=== PATIENT | female | born 1935 | race Caucasian/White ===

== ENCOUNTER 2022-09-01 11:47 | Emergency (ER) | payer MEDICARE, SELFPAY ==
[2022-09-01] VITALS (9 sets, daily range): BP systolic 117–147; BP diastolic 66–83; PULSE 70–102; RESP 18; TEMP 36.9; O2SAT 90–96; BMI 37.4; BMI 39.9
--- NOTE | 2022-09-01 12:31 | CT_ITS ---
FINAL REPORT TECHNIQUE: Axial images through the abdomen and pelvis were performed without contrast. This study was performed with techniques to keep radiation doses as low as reasonably achievable, (ALARA). Individualized dose reduction techniques using automated exposure control or adjustment of mA and/or kV according to the patient's size were employed. CLINICAL HISTORY: fall, ABD PAIN, CONSTIPATION, LARGE LACERATION ON BUTTOCK FROM FALLING ON A POTTY CHAIR PT UNABLE TO LAY ON BACK FOR SCAN, HAD TO LAY ON RIGHT SIDE FINDINGS: ABDOMEN: There is mild scarring in the lung bases. The heart size is normal. Limited images of the liver are unremarkable. The spleen is normal. No adrenal mass is identified. The aorta is normal in caliber. There is no significant free fluid or adenopathy. There is a lobular mass in the left flank subcutaneous tissues measuring up to 10.5 cm, likely represents a hematoma. There is some soft tissue air in this region. There is no nephrolithiasis. There is no hydronephrosis. Diffuse vascular calcification is identified. There are postoperative changes in the right hip which cause streak artifact. PELVIS: The appendix is not identified. The urinary bladder is unremarkable. There is no significant free fluid or adenopathy. IMPRESSION: Mass in the left flank subcutaneous tissues, likely represents a hematoma. Reviewed, Interpreted and Dictated by Oliverio Soriano III, MD Transcribed by Lyndsay Coe Authenticated and [facility]
[2022-09-01 12:39] LABS: Basophils # 0.1 K/mm3 (0-0.2); Basophils % 0.4 % (0.1-2.0); Eosinophils # 0.2 K/mm3 (0.0-0.4); Eosinophils % 1.2 % (0.1-12.0); Hematocrit 36.3 % (37.0-47.0); Hemoglobin 11.3 g/dL (12.2-16.2); Lymphocytes # 1.6 K/mm3 (0.7-4.5); Lymphocytes % 9.8 % (10-50); Mean Corpuscular Hemoglobin 29.4 pg (27.0-31.2); Mean Corpuscular Volume 94.9 fl (81-99); Monocytes # 0.8 K/mm3 (0.1-1.0); Monocytes % 5.1 % (1.7-9.3); Neutrophils # 13.7 K/mm3 (1.8-7.8); Neutrophils % 83.5 % (37.0-80.0); Platelet Count 282 K/mm3 (142-424); Red Blood Count 3.83 M/mm3 (4.20-5.40); Red Cell Distribution Width 15.9 % (11.5-17.5); White Blood Count 16.4 K/mm3 (4.8-10.8)
--- NOTE | 2022-09-01 12:40 | HMH.EDGENADL ---
Discharge Plan Disposition Patient Disposition: Home, Self-Care Condition: Good Prescriptions Prescriptions: No Action diltiazem HCl [Cardizem CD] 240 mg Capsule,Extended Release 24hr 240 mg PO DAILY citalopram [Celexa] 20 mg Tablet 20 mg PO DAILY hydrocodone-acetaminophen 7.5-325 mg Tablet 1 tab PO Q6H PRN (Reason: Anxiety) docusate sodium 100 mg Tablet 100 mg PO BID Eliquis 2.5 mg Tablet 2.5 mg PO BID furosemide [Lasix] 40 mg Tablet 40 mg PO DAILY trazodone 50 mg Tablet 50 mg PO HS potassium chloride 20 mEq Tablet,Er Particles/Crystals 20 meq PO DAILY olopatadine [Patanol] 0.1 % Drops 1 drp OPHTHALMIC (EYE) BID Rx Instructions: separate doses by at least 6-8 hours hydroxyzine HCl 10 mg Tablet 20 mg PO HS metoprolol tartrate 25 mg Tablet 25 mg PO BID omeprazole 20 mg Tablet,Delayed Release (Dr/Ec) 20 mg PO DAILY Referrals Follow up/Referrals: Oliver Castillo MD [Staff Physician] - See instructions Activity Restrictions/Add. Instructions Additional Instructions/Restrictions: Dressing changes twice daily. Remove the dressing gently cleanse the area and apply antibiotic ointment followed by a nonadhesive dressing. Clinical Impressions Clinical Impression: Laceration Instructions Patient Instructions: DI for Laceration Repair Discharge ED Provider: Todd Jorge General Adult HPI General Chief complaint: Wound/Laceration Stated complaint: Laceration to buttocks Time Seen by Provider: 09/01/22 12:27 History of Present Illness HPI narrative: Patient presents with a large laceration to the buttock after having reportedly fallen onto a potty chair. Symptoms are described as moderate she does complain of low back pain in association with today's incident. There is no exacerbating alleviating factors. H&P is limited due to the patient being a vague poor historian. Her son is at the bedside. Related Data Home Medications Medication Instructions Recorded Confirmed apixaban 2.5 mg tablet (Eliquis) 2.5 mg PO BID [place] 09/01/22 09/01/22 citalopram 20 mg tablet (Celexa) 20 mg PO DAILY [place] 09/01/22 09/01/22 diltiazem HCl 240 mg 240 mg PO DAILY [place] 09/01/22 09/01/22 capsule,extended release 24 hr (Cardizem CD) docusate sodium 100 mg tablet 100 mg PO BID UNKNOWN 09/01/22 09/01/22 furosemide 40 mg tablet (Lasix) 40 mg PO DAILY UNKNOWN 09/01/22 09/01/22 hydrocodone 7.5 mg-acetaminophen 1 tab PO Q6H PRN Anxiety 09/01/22 09/01/22 325 mg tablet hydroxyzine HCl 10 mg tablet 20 mg PO HS Anxiety 09/01/22 09/01/22 metoprolol tartrate 25 mg tablet 25 mg PO BID UNKNOWN 09/01/22 09/01/22 olopatadine 0.1 % eye drops 1 drp ophthalmic (eye) BID UNKNOWN 09/01/22 09/01/22 omeprazole 20 mg tablet,delayed 20 mg PO DAILY UNKNOWN 09/01/22 09/01/22 release potassium chloride 20 mEq 20 meq PO DAILY UNKNOWN 09/01/22 09/01/22 tablet,extended release(part/cryst) trazodone 50 mg tablet 50 mg PO HS UNKNOWN 09/01/22 09/01/22 Allergies Allergy/AdvReac Type Severity Reaction Status Date / Time cefprozil [From Cefzil] Allergy Verified 09/01/22 12:32 cephalexin [From Keflex] Allergy Verified 09/01/22 12:32 influenza virus vaccine ts Allergy Verified 09/01/22 12:32 [id number] (36 mos,up) [From Fluarix] Macrolide Antibiotics Allergy Verified 09/01/22 12:32 misoprostol [From Cytotec] Allergy Verified 09/01/22 12:32 naproxen [From Naprosyn] Allergy Verified 09/01/22 12:32 NSAIDS (Non-Steroidal Allergy Verified 09/01/22 12:32 Anti-Inflamma Penicillins Allergy Verified 09/01/22 12:32 pneumococcal vaccine Allergy Verified 09/01/22 12:32 red dye Allergy Verified 09/01/22 12:32 Sulfa (Sulfonamide Allergy Verified 09/01/22 12:32 Antibiotics) sulfamethoxazole Allergy Verified 09/01/22 12:32 [From Bactrim] sulindac [From Clinoril] Allergy Verified 09/01/22 12:32 tetracycline Allergy Verified
[2022-09-01 12:42] LABS: MANUAL DIFFERENTIAL MANUAL DIFFERENTIAL (MANUAL DIFF)
[2022-09-01 12:45] LABS: Alanine Aminotransferase 27 U/L (12-78); Albumin Level 3.3 g/dl (3.5-5.0); Alkaline Phosphatase 81 U/L (38-126); Anion Gap 10.3 mEq/L (5-15); Aspartate Amino Transferase 33 U/L (14-36); Bilirubin,Total 0.6 mg/dl (0.2-1.3); Blood Urea Nitrogen 32 mg/dl (7-17); Calcium 8.2 mg/dl (8.4-10.2); Carbon Dioxide 30 mmol/L (22.0-30.0); Chloride 103 mmol/L (98-107); Creatinine Clearance Estimated 43 mL/min (50-200); Estimated Glomerular Filt Rate 28 ml/min (>60); GFR (African American) 34 ML/MIN (>60); Globulin 3.4 g/dL (1.3-3.2); Glucose 172 mg/dl (74-100); Potassium 4.3 mmoL/L (3.5-5.1); Sodium 139 mmol/L (136-145); Total Protein,Serum 6.7 g/dl (6.3-8.2)
[2022-09-01 12:53] LABS: Eosinophils % 2 % (0-3); Lymphocytes % 7 % (10-50); Monocytes % 9 % (2-9); Neutrophils % 82 % (42-76); Total Cells Counted 100
[2022-09-01 12:54] LABS: Platelet Estimate Normal; RBC Morphology Normal
--- NOTE | 2022-09-01 13:13 | PC.NURSE ---
PT GONE TO CT
--- NOTE | 2022-09-01 14:03 | PC.NURSE ---
Spoke with family and explained we had multiple critical patients and that MD would be in with them shortly to update them on POC. Asked if they had any needs at this time. Advised they did not
--- NOTE | 2022-09-01 14:04 | PC.WOUNDNOTE ---
10 inches in length and approximately 4 inches width laceration to the l buttock
--- NOTE | 2022-09-01 14:05 | PC.NURSE ---
in speaking with family and updating them on POC. Calling rad to check on status of CT. Spoke with Estefany she advised the chart was locked and someone was reading it currently.
--- NOTE | 2022-09-01 14:11 | PC.NURSE ---
went in and spoke in detail with family and advised them the CT was being read right now, repositioned pt to the best position she could be in related to her wound, placed warm blanket under legs and floated her heels. Pt covered with warm blankets. No other needs at this time.
--- NOTE | 2022-09-01 14:45 | PC.NURSE ---
at bedside speaking with family. ALFONZO Duke calling Dr. Castillo at this time. Advised that he would call back.
--- NOTE | 2022-09-01 14:50 | PC.NURSE ---
DR IZQUIERDO SPEAKING WITH DR. SWAIN
--- NOTE | 2022-09-01 15:01 | PC.NURSE ---
October and I changed patients wet linens to dry linens and gave her warm blanket. Dr Hahn is room evaluating patient and talking to family members.
--- NOTE | 2022-09-01 15:30 | PC.NURSE ---
assisted MD with partial laceration closure. Pt tolerated will. Consent signed prior to procedure.
--- NOTE | 2022-09-01 15:37 | PC.NURSE ---
attempted to contact [facility] with no answer.
--- NOTE | 2022-09-01 15:54 | EXP.OP.NOTE ---
Date of procedure: 09/01/22 Pre-op Diagnosis:: Large complex left buttock laceration into the deep subcutaneous tissue (20 cm) Post-op Diagnosis:: Same Procedure performed:: Partial closure of large complex 20 cm left buttock laceration (bedside / Emergency Department) Surgeon:: Oliver Castillo MD Anesthesia: none Estimated blood loss (mL): 5 Clinical Note:: This is an 87-year-old female presenting to the Emergency Department with a large complex laceration of the left buttock into the deep subcutaneous tissue status post fall onto bedside commode. Operative findings:: No ongoing blood loss evident 20 cm laceration with slightly oblique angulation along the left buttock. Extension into the deep subcutaneous tissue but no definitive injury to the underlying fascial margin/musculature. Operative note:: After informed consent was obtained the patient was maintained in a right lateral decubitus position in the emergency department. The wound margin was prepped with Betadine. 2-0 nylon was utilized in a mattress fashion to partially close the wound (5 areas left for packing). The intervening 5 areas were packed with dry gauze and clean dressings were then applied. Condition: stable Disposition: no change Complications:: No immediate
--- NOTE | 2022-09-01 16:00 | PC.NURSE ---
after closer of laceration, area cleaned and bandage placed to cover. PT tolerated well, family at bs
[2022-09-01 16:41] LABS: Coronavirus 19, PCR Not Detected (NotDetected); Influenza A, PCR Not Detected (NotDetected); Influenza B, PCR Not Detected (NotDetected)
--- NOTE | 2022-09-01 16:45 | PC.NURSE ---
Report called to Gabe at [facility]. Explained in detail about pt dressing changes that are to be done bid starting tomorrow morning, pt has 5 areas of packing due to partial laceration closure, each packing, the first four on top to bottom has 1-4x4 guaze with the last packed with half of kerlex dressing. LAceration was cleaned and bandage placed on area.
--- NOTE | 2022-09-01 17:28 | HMH.EDGENADL ---
Discharge Plan Disposition Patient Disposition: Home, Self-Care Condition: Good Prescriptions Prescriptions: New levofloxacin 500 mg tablet See Rx Instructions .ROUTE .COMPLEX 5 Days Qty: 5 0RF Rx Instructions: 500 mg orally q 48 hours No Action diltiazem HCl [Cardizem CD] 240 mg Capsule,Extended Release 24hr 240 mg PO DAILY citalopram [Celexa] 20 mg Tablet 20 mg PO DAILY hydrocodone-acetaminophen 7.5-325 mg Tablet 1 tab PO Q6H PRN (Reason: Anxiety) docusate sodium 100 mg Tablet 100 mg PO BID Eliquis 2.5 mg Tablet 2.5 mg PO BID furosemide [Lasix] 40 mg Tablet 40 mg PO DAILY trazodone 50 mg Tablet 50 mg PO HS potassium chloride 20 mEq Tablet,Er Particles/Crystals 20 meq PO DAILY olopatadine [Patanol] 0.1 % Drops 1 drp OPHTHALMIC (EYE) BID Rx Instructions: separate doses by at least 6-8 hours hydroxyzine HCl 10 mg Tablet 20 mg PO HS metoprolol tartrate 25 mg Tablet 25 mg PO BID omeprazole 20 mg Tablet,Delayed Release (Dr/Ec) 20 mg PO DAILY Referrals Follow up/Referrals: Oliver Castillo MD [Staff Physician] - See instructions Activity Restrictions/Add. Instructions Additional Instructions/Restrictions: Dressing changes twice daily. Remove the dressing gently cleanse the area and apply antibiotic ointment followed by a nonadhesive dressing. Clinical Impressions Clinical Impression: Laceration Instructions Patient Instructions: DI for Laceration Repair Discharge ED Provider: Todd Jorge Adult [facility] General Chief complaint: Wound/Laceration Stated complaint: Laceration to buttocks Time Seen by Provider: 09/01/22 12:27 Mode of Arrival: EMS Limitations: No Limitations Description of Symptoms (Recalled from ER Triage Doc. by RN): c/o left buttock laceration after falling on her potty chair. Related Data Home Medications Medication Instructions Recorded Confirmed apixaban 2.5 mg tablet (Eliquis) 2.5 mg PO BID [place] 09/01/22 09/01/22 citalopram 20 mg tablet (Celexa) 20 mg PO DAILY [place] 09/01/22 09/01/22 diltiazem HCl 240 mg 240 mg PO DAILY [place] 09/01/22 09/01/22 capsule,extended release 24 hr (Cardizem CD) docusate sodium 100 mg tablet 100 mg PO BID UNKNOWN 09/01/22 09/01/22 furosemide 40 mg tablet (Lasix) 40 mg PO DAILY UNKNOWN 09/01/22 09/01/22 hydrocodone 7.5 mg-acetaminophen 1 tab PO Q6H PRN Anxiety 09/01/22 09/01/22 325 mg tablet hydroxyzine HCl 10 mg tablet 20 mg PO HS Anxiety 09/01/22 09/01/22 metoprolol tartrate 25 mg tablet 25 mg PO BID UNKNOWN 09/01/22 09/01/22 olopatadine 0.1 % eye drops 1 drp ophthalmic (eye) BID UNKNOWN 09/01/22 09/01/22 omeprazole 20 mg tablet,delayed 20 mg PO DAILY UNKNOWN 09/01/22 09/01/22 release potassium chloride 20 mEq 20 meq PO DAILY UNKNOWN 09/01/22 09/01/22 tablet,extended release(part/cryst) trazodone 50 mg tablet 50 mg PO HS UNKNOWN 09/01/22 09/01/22 Previous Rx's Medication Instructions Recorded levofloxacin 500 mg tablet See Rx Instructions .Route 09/01/22 .COMPLEX 5 days #5 tabs Allergies Allergy/AdvReac Type Severity Reaction Status Date / Time cefprozil [From Cefzil] Allergy Verified 09/01/22 12:32 cephalexin [From Keflex] Allergy Verified 09/01/22 12:32 influenza virus vaccine ts Allergy Verified 09/01/22 12:32 [id number] (36 mos,up) [From Fluarix] Macrolide Antibiotics Allergy Verified 09/01/22 12:32 misoprostol [From Cytotec] Allergy Verified 09/01/22 12:32 naproxen [From Naprosyn] Allergy Verified 09/01/22 12:32 NSAIDS (Non-Steroidal Allergy Verified 09/01/22 12:32 Anti-Inflamma Penicillins Allergy Verified 09/01/22 12:32 pneumococcal vaccine Allergy Verified 09/01/22 12:32 red dye Allergy Verified 09/01/22 12:32 Sulfa (Sulfonamide Allergy Verified 09/01/22 12:32 Antibiotics) sulfamethoxazole Allergy Verified 09/01/22 12:32 [From Bactrim] sulindac [From Clinoril] All
== END 2022-09-01 17:58 | disposition home or self-care (01) ==
PROVIDERS: Emergency Provider Emergency Medicine
DX: S31.821A Laceration without foreign body of left buttock, initial encounter (principal); W18.11XA Fall from or off toilet without subsequent striking against object, initial encounter; Y92.121 Bathroom in nursing home as the place of occurrence of the external cause; Z23 Encounter for immunization; Z20.822 Contact with and (suspected) exposure to COVID-19
CPT/HCPCS: 12035; 74176; 80053; 85007; 85025; 90471; 90715; 99285; C9803; J1956; U0003; U0005

== ENCOUNTER 2022-09-03 12:40 | Inpatient (IN) | payer OTHER, MEDICARE, MEDICAID, SELFPAY ==
[2022-09-03] VITALS (19 sets, daily range): BP systolic 98–142; BP diastolic 53–97; PULSE 97–140; RESP 14–22; TEMP 36.6–37.3; O2SAT 93–99; BMI 30.7; BMI 36.9
--- NOTE | 2022-09-03 12:52 | PC.NURSE ---
Dr. Lantigua at assessing patients wound
--- NOTE | 2022-09-03 13:03 | PC.NURSE ---
WENDY FULTON speaking with Dr. Lantigua at this time
--- NOTE | 2022-09-03 13:08 | HMH.EDGENADL ---
Discharge Plan Disposition Patient Disposition: Admitted As Inpatient Chief Complaint: Wound/Laceration Prescriptions Prescriptions: No Action diltiazem HCl [Cardizem CD] 240 mg Capsule,Extended Release 24hr 240 mg PO DAILY citalopram [Celexa] 20 mg Tablet 20 mg PO DAILY hydrocodone-acetaminophen 7.5-325 mg Tablet 1 tab PO Q6H PRN (Reason: Anxiety) docusate sodium 100 mg Tablet 100 mg PO BID Eliquis 2.5 mg Tablet 2.5 mg PO BID furosemide [Lasix] 40 mg Tablet 40 mg PO DAILY trazodone 50 mg Tablet 50 mg PO HS potassium chloride 20 mEq Tablet,Er Particles/Crystals 20 meq PO DAILY olopatadine [Patanol] 0.1 % Drops 1 drp OPHTHALMIC (EYE) BID Rx Instructions: separate doses by at least 6-8 hours hydroxyzine HCl 10 mg Tablet 20 mg PO HS metoprolol tartrate 25 mg Tablet 25 mg PO BID omeprazole 20 mg Tablet,Delayed Release (Dr/Ec) 20 mg PO DAILY levofloxacin 500 mg tablet See Rx Instructions .ROUTE .COMPLEX 5 Days Qty: 5 0RF Rx Instructions: 500 mg orally q 48 hours Referrals Follow up/Referrals: Weston Hamm [Primary Care Provider] - See instructions Clinical Impressions Clinical Impression: Laceration, Laceration of buttock with complication Instructions Patient Instructions: DI for Laceration Repair Discharge ED Provider: Jacky Quarles General Adult HPI General Chief complaint: Wound/Laceration Stated complaint: Wound Recheck Time Seen by Provider: 09/03/22 13:09 Mode of Arrival: EMS Source of Information: EMS Limitations: Unable to assess Description of Symptoms (Recalled from ER Triage Doc. by RN): 87 F presents via EMS from [facility] for a wound recheck. 2 days ago she sustained a fall from a bedside commode causing a large laceration to her left buttock. This was sutured and bandaged prior to going back to senior living. The senior living called stating the wound was bleeding more and draining. Patient is mostly oriented. She is a DNR/Hospice patient. History of Present Illness HPI narrative: Patient is a 87-year-old female presenting from senior living for wound recheck. She sustained a laceration several days ago that was repaired at the bedside. Went back to the senior living however there has been increasing drainage and bleeding coming from this wound. Dr. Suad Hein called me prior to this patient's arrival and said the surgeon would likely want to take the patient to the operating room. He stated that she was offered an operation last time she was in the ED and patient is family denied. However they would like more aggressive approach at this point. There are no further complaints from the patient or family at this point. Related Data Home Medications Medication Instructions Recorded Confirmed apixaban 2.5 mg tablet (Eliquis) 2.5 mg PO BID [place] 09/01/22 09/01/22 citalopram 20 mg tablet (Celexa) 20 mg PO DAILY [place] 09/01/22 09/01/22 diltiazem HCl 240 mg 240 mg PO DAILY [place] 09/01/22 09/01/22 capsule,extended release 24 hr (Cardizem CD) docusate sodium 100 mg tablet 100 mg PO BID UNKNOWN 09/01/22 09/01/22 furosemide 40 mg tablet (Lasix) 40 mg PO DAILY UNKNOWN 09/01/22 09/01/22 hydrocodone 7.5 mg-acetaminophen 1 tab PO Q6H PRN Anxiety 09/01/22 09/01/22 325 mg tablet hydroxyzine HCl 10 mg tablet 20 mg PO HS Anxiety 09/01/22 09/01/22 metoprolol tartrate 25 mg tablet 25 mg PO BID UNKNOWN 09/01/22 09/01/22 olopatadine 0.1 % eye drops 1 drp ophthalmic (eye) BID UNKNOWN 09/01/22 09/01/22 omeprazole 20 mg tablet,delayed 20 mg PO DAILY UNKNOWN 09/01/22 09/01/22 release potassium chloride 20 mEq 20 meq PO DAILY UNKNOWN 09/01/22 09/01/22 tablet,extended release(part/cryst) trazodone 50 mg tablet 50 mg PO HS UNKNOWN 09/01/22 09/01/22 Previous Rx's Medication Instructions Recorded levofloxacin 500 mg tablet See Rx Instructions .Route 09/01/22 .COMPLEX 5 days #5 tabs Al
--- NOTE | 2022-09-03 13:21 | PC.NURSE ---
Patient taken to OR for wound clean out and wound vac placement
--- NOTE | 2022-09-03 13:26 | EXP.SURG.CON ---
History of Present Illness *Admission Date: 09/03/22 *Reason for visit:: Wound *History of present illness: Patient is an 87-year-old female who is a hospice detention patient who had presented to the emergency department 2 days ago on 09/01/2022 after she had sustained a very large complex laceration to the left buttock with laceration measuring 20 cm in length. The area was partially closed by Dr. Castillo in the emergency department at that time leaving several areas open for packing for dressing changes due to the high likelihood of potential infection. Subsequently there has been problems with wound care with significant amount of drainage and concerns for infection and she therefore was sent back to the emergency department. Surgical consultation was obtained. Of note, when she was initially evaluated in the emergency department on 09/01/[address] scan performed which revealed mass in the left flank subcutaneous tissues likely represents a hematoma. [facility] Disclaimer: The information contained in this section may have been updated after the patient was seen, as this information can be updated by other users. Social History (Updated 09/01/22 @ 17:19 by Todd Jorge MD) Smoking Status: Never smoker alcohol intake: never current occupational status: unemployed Travel in the last 8 weeks: None Meds Home Medications and Allergies Home Medications Medication Instructions Recorded Confirmed Type apixaban 2.5 mg tablet (Eliquis) 2.5 mg PO BID [place] 09/01/22 09/01/22 History citalopram 20 mg tablet (Celexa) 20 mg PO DAILY [place] 09/01/22 09/01/22 History diltiazem HCl 240 mg 240 mg PO DAILY [place] 09/01/22 09/01/22 History capsule,extended release 24 hr (Cardizem CD) docusate sodium 100 mg tablet 100 mg PO BID UNKNOWN 09/01/22 09/01/22 History furosemide 40 mg tablet (Lasix) 40 mg PO DAILY UNKNOWN 09/01/22 09/01/22 History hydrocodone 7.5 mg-acetaminophen 1 tab PO Q6H PRN Anxiety 09/01/22 09/01/22 History 325 mg tablet hydroxyzine HCl 10 mg tablet 20 mg PO HS Anxiety 09/01/22 09/01/22 History levofloxacin 500 mg tablet See Rx Instructions .Route 09/01/22 Rx .COMPLEX 5 days #5 tabs metoprolol tartrate 25 mg tablet 25 mg PO BID UNKNOWN 09/01/22 09/01/22 History olopatadine 0.1 % eye drops 1 drp ophthalmic (eye) BID UNKNOWN 09/01/22 09/01/22 History omeprazole 20 mg tablet,delayed 20 mg PO DAILY UNKNOWN 09/01/22 09/01/22 History release potassium chloride 20 mEq 20 meq PO DAILY UNKNOWN 09/01/22 09/01/22 History tablet,extended release(part/cryst) trazodone 50 mg tablet 50 mg PO HS UNKNOWN 09/01/22 09/01/22 History New Prescriptions to Start Prescriptions: Allergies Allergy/AdvReac Type Severity Reaction Status Date / Time cefprozil [From Cefzil] Allergy Verified 09/03/22 13:34 cephalexin [From Keflex] Allergy Verified 09/03/22 13:34 influenza virus vaccine ts Allergy Verified 09/03/22 13:34 [id number] (36 mos,up) [From Fluarix] Macrolide Antibiotics Allergy Verified 09/03/22 13:34 misoprostol [From Cytotec] Allergy Verified 09/03/22 13:34 naproxen [From Naprosyn] Allergy Verified 09/03/22 13:34 NSAIDS (Non-Steroidal Allergy Verified 09/03/22 13:34 Anti-Inflamma Penicillins Allergy Verified 09/03/22 13:34 pneumococcal vaccine Allergy Verified 09/03/22 13:34 red dye Allergy Verified 09/03/22 13:34 Sulfa (Sulfonamide Allergy Verified 09/03/22 13:34 Antibiotics) sulfamethoxazole Allergy Verified 09/03/22 13:34 [From Bactrim] sulindac [From Clinoril] Allergy Verified 09/03/22 13:34 tetracycline Allergy Verified 09/03/22 13:34 trimethoprim [From Bactrim] Allergy Verified 09/03/22 13:34 erythromycin base AdvReac Verified 09/03/22 13:34 Exam (Inpt) Vital signs and Labs for Last 24 Hours: Temp Pulse Resp BP Pulse Ox 98.6 F 97 H 19 98/67 L 99 09/03/22 13:22 09/03/22 13:22 09/03/22 13:22 09/03/22 13:22 09/03/22 1
--- NOTE | 2022-09-03 14:22 | EXP.ANES.CKL ---
[facility] Disclaimer: The information contained in this section may have been updated after the patient was seen, as this information can be updated by other users. Social History (Updated 09/01/22 @ 17:19 by Todd Jorge MD) Smoking Status: Never smoker alcohol intake: never substance use type: denies use current occupational status: unemployed Travel in the last 8 weeks: None [facility] Anesthesia Checklist Patient Identification Patient Identification: Arm Band and Family Structural Data Admitted From: Long-term Nursing Facility Planned Operative Procedure/s: Left Buttock wound debridment Consent for Planned Operative Procedure(s) Verified: Yes Verified Documents: Surgical Consent NPO Status Verified Time NPO: 00:00 Airway Assessment C-Spine Mobility Assessed: Yes TMJ Mobility Assessed: No Neurological Assessment Level of Consciousness: Follows Commands Anesthesia Plan Anesthesia Risk discussed: No ASA Class: III Anesthesia Type: MAC
--- NOTE | 2022-09-03 15:08 | P.OP_ITS ---
Date of procedure: 09/03/22 Pre-op Diagnosis:: Complex left buttock/pelvic wound Post-op Diagnosis:: Same Procedure performed:: Wound washout with placement of negative pressure wound therapy dressing Surgeon:: Oliverio Lantigua MD MATERIAL CONTROL ASSOCIATE:: Iraj Strickland Anesthesia: MAC Estimated blood loss (mL): 20 Clinical Note:: Patient is an 87-year-old female who is a hospice fdc patient who had presented to the emergency department 2 days ago on 09/01/2022 after she had sustained a very large complex laceration to the left buttock with laceration measuring estimated 20 cm in length.? The area was partially closed by Dr. Castillo in the emergency department at that time leaving several areas open for packing for dressing changes due to the high likelihood of potential infection.? Subsequently there has been problems with wound care with significant amount of drainage and concerns for infection and she therefore was sent back to the emergency department.? Surgical consultation was obtained.? Of note, when she was initially evaluated in the emergency department on 09/01/2022 she did have a CT scan performed which revealed mass in the left flank subcutaneous tissues likely represents a hematoma. Due to the difficulty in managing the wound with current wound care regimen and due to the possibility of some tissue necrosis plan was for aggressive wound washout in the operating room under anesthesia and likely possible negative pressure wound therapy dressing application under anesthesia.? Plan will be for admission to hospitalist service for wound care, antibiotics. Operative findings:: She had a rather large complex wound which measured 28 cm in length along the left gluteal area with 8 cm in width and 2 cm in depth superiorly with 3 cm undermining circumferentially. However, it was quite deep at the lower buttock in the perirectal location with 13 cm of deep tunneling down to the gluteal muscles and some pelvic musculature. No evidence of any deep tissue necrosis. There was some bruising and skin necrosis superficially which was not debrided at this time. Operative note:: Patient was taken the operating room. She was positioned in lateral position. The area was prepped and draped in the standard surgical fashion. Previously placed sutures were removed. Wound was probed and inspected. There was some minor tissue necrosis towards the upper aspect and lower aspect of the wound. It was difficult to determine and the lower aspect how much of this was ecchymosis versus necrosis. No evidence of any deep tissue necrosis. Wound was probed and there was significant tunneling into the gluteal and pelvic tissues measuring up to about 13 cm into the deep tissues in the lower aspect of the wound. Wound was thoroughly irrigated with the Interpulse pulsatile saline irrigation device with 7 L of saline. There appeared to be adequate hemostasis. Wound measurements were obtained. Negative pressure wound therapy foam was fashioned to the appropriate size and shape to pack the wound. Occlusive VAC dressing was then applied and suction was attached. Patient tolerated the procedure well with no immediate complications. Condition: stable Disposition: PACU Complications:: None immediately apparent
--- NOTE | 2022-09-03 15:49 | PC.NURSE ---
arrived to floor by bed from surgery at 15:47
--- NOTE | 2022-09-03 16:15 | PC.NURSE ---
1536-detailed report called to José Antonio,RN 1538-pt transported to 2nd floor room 208 via hospital bed w/alpesh rails up, pt left in care of ALFONZO Mendez with bed locked in lowest position, additional bedside report given, vss, pt stable
--- NOTE | 2022-09-03 16:38 | EXP.HP ---
History of Present Illness *Admission Date: 09/03/22 *Reason for visit:: Laceration *History of present illness: Ms. Abdalla is an 87-year-old female with history of rheumatoid arthritis, bilateral foot deformities, class II obesity, and dementia who presented from [facility] due to laceration. She was previously a hospice patient but discharged earlier today at the family's request so she could come to the hospital to have large left gluteal laceration addressed. She originally presented to the ER 2 days ago on 09/01/2022 after she had sustained a very large complex laceration to the left buttock with laceration measuring 20 cm in length. Wound sustained when she fell against her potty chair. The area was partially closed by Dr. Castillo in the emergency department at that time leaving several areas open for packing for dressing changes due to the high likelihood of potential infection. Due to the complexity of the wound and difficulty with wound care and a significant mount of drainage along with concern for infection, family requested patient be sent back to the hospital for further management and surgical intervention. On arrival to the ER, surgery consulted, plan to take patient to the OR to surgically close wound and place wound VAC. Medicine consulted for admission. Patient evaluated after arriving to the floor post surgery. Family in the room with her includes a son, daughter, [id number], grandson. They provided history of patient. It appears she has been on hospice for several years due to her rheumatoid arthritis, progressive debility, and dementia. No formal diagnosis of dementia previously however she does not take care of her ADLs daily, has declined over the past year, does not recall if she is spoken to people hours later. [facility] Disclaimer: The information contained in this section may have been updated after the patient was seen, as this information can be updated by other users. Medical History (Updated 09/03/22 @ 18:38 by Cesar Hein MD) Atrial fibrillation Congestive heart failure Deep vein thrombosis (DVT) Hypertension Rheumatoid arthritis Family History No significant family history Social History Smoking Status: Never smoker alcohol intake: never substance use type: denies use current occupational status: unemployed Travel in the last 8 weeks: None Review of Systems Review of Systems Review of systems (narrative): 14 point review of systems performed, pertinent positives and negatives as per [facility] Meds Home Medications and Allergies Home Medications Medication Instructions Recorded Confirmed Type apixaban 2.5 mg tablet (Eliquis) 2.5 mg PO BID [place] 09/01/22 09/03/22 History citalopram 20 mg tablet (Celexa) 20 mg PO DAILY [place] 09/01/22 09/03/22 History diltiazem HCl 240 mg 240 mg PO DAILY [place] 09/01/22 09/03/22 History capsule,extended release 24 hr (Cardizem CD) docusate sodium 100 mg tablet 100 mg PO BID UNKNOWN 09/01/22 09/03/22 History furosemide 40 mg tablet (Lasix) 40 mg PO DAILY UNKNOWN 09/01/22 09/03/22 History hydrocodone 7.5 mg-acetaminophen 1 tab PO Q6H PRN Anxiety 09/01/22 09/03/22 History 325 mg tablet hydroxyzine HCl 10 mg tablet 20 mg PO HS Anxiety 09/01/22 09/03/22 History metoprolol tartrate 25 mg tablet 25 mg PO BID UNKNOWN 09/01/22 09/03/22 History olopatadine 0.1 % eye drops 1 drp ophthalmic (eye) BID UNKNOWN 09/01/22 09/03/22 History omeprazole 20 mg tablet,delayed 20 mg PO DAILY UNKNOWN 09/01/22 09/03/22 History release potassium chloride 20 mEq 20 meq PO DAILY UNKNOWN 09/01/22 09/03/22 History tablet,extended release(part/cryst) trazodone 50 mg tablet 50 mg PO HS Insomnia 09/01/22 09/03/22 History New Prescriptions to Start Prescriptions: Allergies Allergy/AdvReac Type Severity Reaction Status Date / Time cefproz
--- NOTE | 2022-09-03 16:48 | ECG_ITS ---
APPROVED REPORT Exam: Resting ECG HR:120 bpm ECG Measurements Heart Rate 120 AXES QRSd 87 QRS 46 QT 316 T 247 QTc 388 Conclusion ATRIAL FIBRILLATION WITH RAPID VENTRICULAR RESPONSE LOW QRS VOLTAGE [QRS DEFLECTION < 0.5/1.0 mV IN LIMB/CHEST LEADS] MODERATE ST DEPRESSION [0.05+ mV ST DEPRESSION] ABNORMAL QRS-T ANGLE [QRS-T AXIS DIFFERENCE > 60] ABNORMAL ECG UNCONFIRMED REPORT Electronically signed by : Franklyn Andersen MD 09/04/2022 20:44:12
--- NOTE | 2022-09-03 17:44 | XR_ITS ---
PROCEDURE INFORMATION: Exam: XR Chest Exam date and time: 09/03/2022 6:35 PM Age: 87 years old Clinical indication: Shortness of breath; Additional info: SOA TECHNIQUE: Imaging protocol: Radiologic exam of the chest. Views: 1 view. COMPARISON: CT ABDOMEN PELVIS WO CON 09/01/2022 1:30 PM FINDINGS: Lungs: There is mild bilateral lower lobe atelectasis. Lungs are otherwise clear. Pleural spaces: Unremarkable. No pleural effusion. No pneumothorax. Heart/Mediastinum: Cardiac silhouette is top-normal in size for technique. Bones/joints: Old, healed left proximal humerus fracture noted. Mild degenerative changes of the spine and shoulders are present. IMPRESSION: Borderline cardiomegaly with mild bilateral lower lobe atelectasis and chronic osseous changes.
[2022-09-03 18:42] LABS: Chloride 101 mmol/L (98-107); Potassium 4.6 mmoL/L (3.5-5.1); Sodium 136 mmol/L (136-145)
[2022-09-03 18:45] LABS: Alanine Aminotransferase 27 U/L (12-78); Albumin Level 2.9 g/dl (3.5-5.0); Albumin/Globulin Ratio 0.9 (1.1-1.8); Alkaline Phosphatase 112 U/L (38-126); Anion Gap 9.6 mEq/L (5-15); Aspartate Amino Transferase 48 U/L (14-36); Basophils # 0.1 K/mm3 (0-0.2); Basophils % 0.3 % (0.1-2.0); Bilirubin,Total 0.4 mg/dl (0.2-1.3); Blood Urea Nitrogen 41 mg/dl (7-17); Carbon Dioxide 30 mmol/L (22.0-30.0); Creatinine Clearance Estimated 33 mL/min (50-200); Eosinophils # 0.1 K/mm3 (0.0-0.4); Eosinophils % 0.6 % (0.1-12.0); Estimated Glomerular Filt Rate 24 ml/min (>60); GFR (African American) 29 ML/MIN (>60); Globulin 3.4 g/dL (1.3-3.2); Hematocrit 28.7 % (37.0-47.0); Hemoglobin 8.8 g/dL (12.2-16.2); Lymphocytes # 1.3 K/mm3 (0.7-4.5); Lymphocytes % 9.1 % (10-50); Mean Corpuscular HGB Conc 30.8 g/dL (31.8-35.4); Mean Corpuscular Hemoglobin 29.5 pg (27.0-31.2); Mean Corpuscular Volume 95.7 fl (81-99); Monocytes % 7.3 % (1.7-9.3); Neutrophils # 11.4 K/mm3 (1.8-7.8); Neutrophils % 82.7 % (37.0-80.0); Platelet Count 265 K/mm3 (142-424); Red Cell Distribution Width 16.2 % (11.5-17.5); Total Protein,Serum 6.3 g/dl (6.3-8.2); White Blood Count 13.8 K/mm3 (4.8-10.8)
[2022-09-03 18:46] LABS: Calcium 7.5 mg/dl (8.4-10.2); Glucose 183 mg/dl (74-100)
[2022-09-04] VITALS (20 sets, daily range): BP systolic 89–133; BP diastolic 46–92; PULSE 67–150; RESP 15–22; TEMP 36.5–37.8; O2SAT 90–100; BMI 39.4; BMI 37.5
--- NOTE | 2022-09-04 04:28 | PC.NURSE ---
Pt. with c/o pain in left buttock and the left side of her head. Pain meds given and no other changes noted.
--- NOTE | 2022-09-04 05:42 | ECG_ITS ---
APPROVED REPORT Exam: Resting ECG HR:122 bpm ECG Measurements Heart Rate 122 AXES QRSd 86 QRS 40 QT 324 T 258 QTc 397 Conclusion ATRIAL FIBRILLATION WITH RAPID VENTRICULAR RESPONSE LOW QRS VOLTAGE [QRS DEFLECTION < 0.5/1.0 mV IN LIMB/CHEST LEADS] MODERATE ST DEPRESSION [0.05+ mV ST DEPRESSION] ABNORMAL QRS-T ANGLE [QRS-T AXIS DIFFERENCE > 60] ABNORMAL ECG UNCONFIRMED REPORT Electronically signed by : Franklyn Andersen MD 09/04/2022 20:43:41
--- NOTE | 2022-09-04 05:48 | PC.NURSE ---
Brigid called about pt's HR in the 130's to 140's. EKG ordered.
--- NOTE | 2022-09-04 06:03 | PC.NURSE ---
Received report from Rosi Cornelius to assume pt care at this time.
--- NOTE | 2022-09-04 06:25 | PC.NURSE ---
CARDIZEM GTT STARTED AT 5 MG PER HOUR, HR 142 A FIB WITH RVR
--- NOTE | 2022-09-04 06:25 | PC.NURSE ---
CARDIZEM INCREASED TO 10 MG PER HOUR. HR 130, b/P 125/65
[2022-09-04 08:05] LABS: Chloride 106 mmol/L (98-107); Sodium 136 mmol/L (136-145)
[2022-09-04 08:06] LABS: Potassium 5.4 mmoL/L (3.5-5.1)
[2022-09-04 08:08] LABS: Alanine Aminotransferase 22 U/L (12-78); Albumin Level 2.2 g/dl (3.5-5.0); Albumin/Globulin Ratio 0.8 (1.1-1.8); Alkaline Phosphatase 38 U/L (38-126); Anion Gap 7.4 mEq/L (5-15); Aspartate Amino Transferase 64 U/L (14-36); Bilirubin,Total 0.4 mg/dl (0.2-1.3); Blood Urea Nitrogen 41 mg/dl (7-17); Carbon Dioxide 28 mmol/L (22.0-30.0); Creatinine Clearance Estimated 47 mL/min (50-200); Estimated Glomerular Filt Rate 33 ml/min (>60); GFR (African American) 40 ML/MIN (>60); Globulin 2.6 g/dL (1.3-3.2); Glucose 107 mg/dl (74-100); Total Protein,Serum 4.8 g/dl (6.3-8.2)
[2022-09-04 08:09] LABS: Magnesium 2.1 mg/dl (1.6-2.3)
[2022-09-04 08:54] LABS: Basophils # 0.6 K/mm3 (0-0.2); Basophils % 4.4 % (0.1-2.0); Eosinophils # 0.2 K/mm3 (0.0-0.4); Eosinophils % 1.3 % (0.1-12.0); Hematocrit 42.3 % (37.0-47.0); Lymphocytes # 1.5 K/mm3 (0.7-4.5); Lymphocytes % 11.5 % (10-50); Mean Corpuscular Hemoglobin 28.7 pg (27.0-31.2); Mean Corpuscular Volume 92.8 fl (81-99); Mean Platelet Volume 8.8 fl (7.4-10.4); Monocytes # 1.7 K/mm3 (0.1-1.0); Monocytes % 13.4 % (1.7-9.3); Neutrophils # 9.4 K/mm3 (1.8-7.8); Neutrophils % 73.8 % (37.0-80.0); Platelet Count 98 K/mm3 (142-424); Red Blood Count 4.56 M/mm3 (4.20-5.40); White Blood Count 12.7 K/mm3 (4.8-10.8)
[2022-09-04 09:08] LABS: Hemoglobin 13.1 g/dL (12.2-16.2)
--- NOTE | 2022-09-04 10:14 | EXP.PHA.CONS ---
Pharmacy Consult Date: 09/04/22 Time: 10:15 Referring provider: DR FUNES Reason for Consult:: VANCOMYCIN DOSING CONSULT Allergies Allergy/AdvReac Type Severity Reaction Status Date / Time cefprozil [From Cefzil] Allergy Verified 09/03/22 13:34 cephalexin [From Keflex] Allergy Verified 09/03/22 13:34 influenza virus vaccine ts Allergy Verified 09/03/22 13:34 [id number] (36 mos,up) [From Fluarix] Macrolide Antibiotics Allergy Verified 09/03/22 13:34 misoprostol [From Cytotec] Allergy Verified 09/03/22 13:34 naproxen [From Naprosyn] Allergy Verified 09/03/22 13:34 NSAIDS (Non-Steroidal Allergy Verified 09/03/22 13:34 Anti-Inflamma Penicillins Allergy Verified 09/03/22 13:34 pneumococcal vaccine Allergy Verified 09/03/22 13:34 red dye Allergy Verified 09/03/22 13:34 Sulfa (Sulfonamide Allergy Verified 09/03/22 13:34 Antibiotics) sulfamethoxazole Allergy Verified 09/03/22 13:34 [From Bactrim] sulindac [From Clinoril] Allergy Verified 09/03/22 13:34 tetracycline Allergy Verified 09/03/22 13:34 trimethoprim [From Bactrim] Allergy Verified 09/03/22 13:34 erythromycin base AdvReac Verified 09/03/22 13:34 Home Medications Medication Instructions Recorded Confirmed Type apixaban 2.5 mg tablet (Eliquis) 2.5 mg PO BID [place] 09/01/22 09/03/22 History citalopram 20 mg tablet (Celexa) 20 mg PO DAILY [place] 09/01/22 09/03/22 History diltiazem HCl 240 mg 240 mg PO DAILY [place] 09/01/22 09/03/22 History capsule,extended release 24 hr (Cardizem CD) docusate sodium 100 mg tablet 100 mg PO BID UNKNOWN 09/01/22 09/03/22 History furosemide 40 mg tablet (Lasix) 40 mg PO DAILY UNKNOWN 09/01/22 09/03/22 History hydrocodone 7.5 mg-acetaminophen 1 tab PO Q6HP PRN MODERATE TO 09/01/22 09/04/22 History 325 mg tablet SEVERE PAIN hydroxyzine HCl 10 mg tablet 20 mg PO HS Anxiety 09/01/22 09/03/22 History metoprolol tartrate 25 mg tablet 25 mg PO BID UNKNOWN 09/01/22 09/03/22 History olopatadine 0.1 % eye drops 1 drp ophthalmic (eye) BID UNKNOWN 09/01/22 09/03/22 History omeprazole 20 mg tablet,delayed 20 mg PO DAILY UNKNOWN 09/01/22 09/03/22 History release potassium chloride 20 mEq 20 meq PO DAILY UNKNOWN 09/01/22 09/03/22 History tablet,extended release(part/cryst) trazodone 50 mg tablet 50 mg PO HS Insomnia 09/01/22 09/03/22 History New Prescriptions to Start Prescriptions: Height: 1.68 m Weight: 105.885 kg Laboratory Results:: Laboratory Results - last 24 hr 09/03/22 18:18: WBC 13.8 H, RBC 3.00 L, Hgb 8.8 L, Hct 28.7 L, MCV 95.7, MCH 29.5, MCHC 30.8 L, RDW 16.2, Plt Count 265, MPV 9.0, Neut % (Auto) 82.7 H, Lymph % (Auto) 9.1 L, [place] % (Auto) 7.3, Eos % (Auto) 0.6, Baso % (Auto) 0.3, Neut # (Auto) 11.4 H, Lymph # (Auto) 1.3, [place] # (Auto) 1.0, Eos # (Auto) 0.1, Baso # (Auto) 0.1 09/03/22 18:18: Sodium 136, Potassium 4.6, Chloride 101, Carbon Dioxide 30, Anion Gap 9.6, BUN 41 H D, Creatinine 2.00 H, Estimated Creat Clear 33, Estimated GFR 24 L, Est GFR ( Amer) 29 L, Glucose 183 H, Calcium 7.5 L, Total Bilirubin 0.4, AST 48 H D, ALT 27, Alkaline Phosphatase 112, Total Protein 6.3, Albumin 2.9 L, Globulin 3.4 H, Albumin/Globulin Ratio 0.9 L 09/03/22 18:18: Blood Type A Negative, Antibody Screen Positive 09/04/22 07:41: Sodium 136, Potassium 5.4 H, Chloride 106, Carbon Dioxide 28, Anion Gap 7.4, BUN 41 H, Creatinine 1.50 H D, Estimated Creat Clear 47, Estimated GFR 33 L, Est GFR ( Amer) 40 L D, Glucose 107 H D, Calcium 7.0 L, Magnesium 2.1, Total Bilirubin 0.4, AST 64 H D, ALT 22, Alkaline Phosphatase 38, Total Protein 4.8 L, Albumin 2.2 L D, Globulin 2.6, Albumin/Globulin Ratio 0.8 L 09/04/22 08:31: WBC 12.7 H, RBC 4.56 D, Hgb 13.1 D, Hct 42.3, MCV 92.8, MCH 28.7, MCHC 31.0 L, RDW 16.0, Plt Count 98 L D, MPV 8.8, Neut % (Auto) 73.8, Lymph % (Auto) 11.5, [place] % (Auto) 13.4 H, Eos % (Auto) 1.3, Baso % (Auto) 4.4 H, Neut # (Auto) 9.4 H, Lymph # (Auto) 1.5, [place] # (Auto) 1.7 H, E
--- NOTE | 2022-09-04 10:21 | EXP.SURG.PN ---
Subjective Narrative: No issues from wound standpoint. Exam Data for Last 24 hours Vital signs and Labs for Last 24 Hours: Temp Pulse Resp BP Pulse Ox 97.7 F 129 H 18 120/59 L 92 L 09/04/22 08:00 09/04/22 06:45 09/04/22 06:45 09/04/22 06:45 09/04/22 06:45 Laboratory Results - last 24 hr 09/03/22 18:18: WBC 13.8 H, RBC 3.00 L, Hgb 8.8 L, Hct 28.7 L, MCV 95.7, MCH 29.5, MCHC 30.8 L, RDW 16.2, Plt Count 265, MPV 9.0, Neut % (Auto) 82.7 H, Lymph % (Auto) 9.1 L, [place] % (Auto) 7.3, Eos % (Auto) 0.6, Baso % (Auto) 0.3, Neut # (Auto) 11.4 H, Lymph # (Auto) 1.3, [place] # (Auto) 1.0, Eos # (Auto) 0.1, Baso # (Auto) 0.1 09/03/22 18:18: Sodium 136, Potassium 4.6, Chloride 101, Carbon Dioxide 30, Anion Gap 9.6, BUN 41 H D, Creatinine 2.00 H, Estimated Creat Clear 33, Estimated GFR 24 L, Est GFR ( Amer) 29 L, Glucose 183 H, Calcium 7.5 L, Total Bilirubin 0.4, AST 48 H D, ALT 27, Alkaline Phosphatase 112, Total Protein 6.3, Albumin 2.9 L, Globulin 3.4 H, Albumin/Globulin Ratio 0.9 L 09/03/22 18:18: Blood Type A Negative, Antibody Screen Positive 09/04/22 07:41: Sodium 136, Potassium 5.4 H, Chloride 106, Carbon Dioxide 28, Anion Gap 7.4, BUN 41 H, Creatinine 1.50 H D, Estimated Creat Clear 47, Estimated GFR 33 L, Est GFR ( Amer) 40 L D, Glucose 107 H D, Calcium 7.0 L, Magnesium 2.1, Total Bilirubin 0.4, AST 64 H D, ALT 22, Alkaline Phosphatase 38, Total Protein 4.8 L, Albumin 2.2 L D, Globulin 2.6, Albumin/Globulin Ratio 0.8 L 09/04/22 08:31: WBC 12.7 H, RBC 4.56 D, Hgb 13.1 D, Hct 42.3, MCV 92.8, MCH 28.7, MCHC 31.0 L, RDW 16.0, Plt Count 98 L D, MPV 8.8, Neut % (Auto) 73.8, Lymph % (Auto) 11.5, [place] % (Auto) 13.4 H, Eos % (Auto) 1.3, Baso % (Auto) 4.4 H, Neut # (Auto) 9.4 H, Lymph # (Auto) 1.5, [place] # (Auto) 1.7 H, Eos # (Auto) 0.2, Baso # (Auto) 0.6 H I & O for Last 24 hours: Intake & Output 09/01/22 09/02/22 09/03/22 09/04/22 11:59 11:59 11:59 11:59 Intake Total 1250 / 1250 Output Total 600 / 600 Balance 650 / 650 Weight 233 lb 7 oz *Routine Skin Exam Comments: VAC in place with bruising but no definite necrosis. Progress Note: A&P Assessment and plan (1) Laceration of buttock with complication: Status: Acute Assessment and plan: Continue VAC. Possible VAC change in 48 hours, potentially in OR with washout. (2) Anemia: Status: Acute (3) Atrial fibrillation with RVR: Status: Acute (4) Dementia: Status: Chronic (5) Rheumatoid arthritis: Status: Chronic (6) Hypertension: Status: Chronic (7) Congestive heart failure: Status: Chronic (8) Atrial fibrillation: Status: Chronic
--- NOTE | 2022-09-04 11:41 | EXP.PN ---
Subjective *Date: 09/04/22 *Time: 11:41 Interval history: Date of service September 04, 2022 Nursing staff report that the patient remains afebrile with improved heart rates and stable blood pressures. She is saturating appropriately on 2 L of oxygen via nasal cannula. Exam Data for Last 24 hours Vital signs and Labs for Last 24 Hours: Temp Pulse Resp BP Pulse Ox 97.7 F 107 H 18 120/59 L 92 L 09/04/22 08:00 09/04/22 08:00 09/04/22 06:45 09/04/22 06:45 09/04/22 06:45 Laboratory Results - last 24 hr 09/03/22 18:18: WBC 13.8 H, RBC 3.00 L, Hgb 8.8 L, Hct 28.7 L, MCV 95.7, MCH 29.5, MCHC 30.8 L, RDW 16.2, Plt Count 265, MPV 9.0, Neut % (Auto) 82.7 H, Lymph % (Auto) 9.1 L, [place] % (Auto) 7.3, Eos % (Auto) 0.6, Baso % (Auto) 0.3, Neut # (Auto) 11.4 H, Lymph # (Auto) 1.3, [place] # (Auto) 1.0, Eos # (Auto) 0.1, Baso # (Auto) 0.1 09/03/22 18:18: Sodium 136, Potassium 4.6, Chloride 101, Carbon Dioxide 30, Anion Gap 9.6, BUN 41 H D, Creatinine 2.00 H, Estimated Creat Clear 33, Estimated GFR 24 L, Est GFR ( Amer) 29 L, Glucose 183 H, Calcium 7.5 L, Total Bilirubin 0.4, AST 48 H D, ALT 27, Alkaline Phosphatase 112, Total Protein 6.3, Albumin 2.9 L, Globulin 3.4 H, Albumin/Globulin Ratio 0.9 L 09/03/22 18:18: Blood Type A Negative, Antibody Screen Positive 09/04/22 07:41: Sodium 136, Potassium 5.4 H, Chloride 106, Carbon Dioxide 28, Anion Gap 7.4, BUN 41 H, Creatinine 1.50 H D, Estimated Creat Clear 47, Estimated GFR 33 L, Est GFR ( Amer) 40 L D, Glucose 107 H D, Calcium 7.0 L, Magnesium 2.1, Total Bilirubin 0.4, AST 64 H D, ALT 22, Alkaline Phosphatase 38, Total Protein 4.8 L, Albumin 2.2 L D, Globulin 2.6, Albumin/Globulin Ratio 0.8 L 09/04/22 08:31: WBC 12.7 H, RBC 4.56 D, Hgb 13.1 D, Hct 42.3, MCV 92.8, MCH 28.7, MCHC 31.0 L, RDW 16.0, Plt Count 98 L D, MPV 8.8, Neut % (Auto) 73.8, Lymph % (Auto) 11.5, [place] % (Auto) 13.4 H, Eos % (Auto) 1.3, Baso % (Auto) 4.4 H, Neut # (Auto) 9.4 H, Lymph # (Auto) 1.5, [place] # (Auto) 1.7 H, Eos # (Auto) 0.2, Baso # (Auto) 0.6 H I & O for Last 24 hours: Intake & Output 09/01/22 09/02/22 09/03/22 09/04/22 23:59 23:59 23:59 23:59 Intake Total 350 / 350 900 / 900 Output Total 600 / 600 Balance 350 / 350 300 / 300 Weight 103.929 kg 105.885 kg Constitutional Constitutional: no acute distress and chronically ill appearing *Routine HEENT Exam Head: Present normocephalic Eye: Present EOMI and PERRL ENT: Present mucous membranes moist *Routine Neck Exam Neck: Present supple; Absent lymphadenopathy *Routine Respiratory Exam Respiratory: Present rhonchi, normal respiratory effort and symmetric chest movement *Routine Cardiovascular Exam Cardiovascular: Present RRR *Routine Abdominal Exam Abdominal: Present soft and normoactive bowel sounds; Absent tenderness *Routine Extremities Exam Extremities: Absent cyanosis, clubbing or edema *Routine Skin Exam Skin: Present warm Comments: Wound VAC noted *Routine Neurological Exam Neurological: Present alert and oriented X3 Assessment and Plan *Assessment and plan (1) Laceration of buttock with complication: Status: Acute Category: Medical Code(s): S31.801A - Laceration without foreign body of unspecified buttock, initial encounter (2) Anemia: Status: Acute Category: Medical Code(s): D64.9 - Anemia, unspecified (3) Atrial fibrillation with RVR: Status: Acute Category: Medical Code(s): I48.91 - Unspecified atrial fibrillation (4) Dementia: Status: Chronic Category: Medical Code(s): F03.90 - Unspecified dementia, unspecified severity, without behavioral disturbance, psychotic disturbance, mood disturbance, and anxiety (5) Rheumatoid arthritis: Status: Chronic Category: Medical Code(s): M06.9 - Rheumatoid arthritis, unspecified (6) Hypertension: Status: Chronic Category: Medical Code(s): I10 - Essential (primary) hy
--- NOTE | 2022-09-04 12:00 | P.CONPHA_ITS ---
Pharmacy Intervention Comments: MEDICATION RECONCILIATION COMPLETE USING MAR FROM [facility].
--- NOTE | 2022-09-04 12:00 | HMH.PHAINT1 ---
Pharmacy Intervention Comments: MEDICATION RECONCILIATION COMPLETE USING MAR FROM [facility].
--- NOTE | 2022-09-04 14:37 | PC.NURSE ---
late entry: [address] Reyes face to face that pt is possibly aspirating on liquids. pt has been advanced to nectar then honey r/t wet cough following drinks. no new orders at this time.
--- NOTE | 2022-09-04 14:44 | PC.NURSE ---
notified by Respiratory Therapist that she attempted to suction patient. family in room and refused for pt to be suctioned. stated that at this time they do not wish for her to be suctioned any further. if they feel she needs to be suctioned, they will notify staff.
--- NOTE | 2022-09-04 15:45 | PC.NURSE ---
1505 attempted to give patient pudding thick liquids to assess for aspiration on that consistency. pt had also just received diltiazem and lorab in apple sauce. pt began to complain of feeling sick. Spoke with Dr Reyes at 1505, asked for nausea meds for patient. new orders, zofran 4mg times 1 dose now.
--- NOTE | 2022-09-04 16:31 | PC.NURSE ---
Addendum entered by Raiza Stafford RN 09/04/22 17:51: notified Dr Reyes at this time that pt has woke up from sleeping and her heart rate is back in the 110's - 100's. per Dr Reyes parameters for restarting drip, do not let heart rate sustain over 120's for more than 2 hrs. Addendum entered by Raiza Stafford RN 09/04/22 17:20: 1718 drip ok to dc per Dr Reyes at this time. Pt hr maintaining mid 80's - low 90's Original Note: late entry: start of shift pt cardizem drip was infusing at 10mg/ml drip increased to 15mg/ml at approx 1130 r/t hr 127 drip decreased to 10mg/ml at approx 1530 r/t hr 89 drip decreased to 5mg/ml at 1620 r/t hr 85
[2022-09-05] VITALS (14 sets, daily range): BP systolic 95–111; BP diastolic 48–65; PULSE 90–115; RESP 16–22; TEMP 36.3–37.8; O2SAT 95–100; BMI 37.8
--- NOTE | 2022-09-05 03:48 | PC.NURSE ---
Pt remains in afib. HR has fluctuated 90s to 110s with brief periods of 120s-130s when in pain or distress. Pt noted to rest better on (R) side. She becomes more tachy when supine with pain. Pain medication administered as needed. Other VSS. Bed bath given by staff. Erythema noted to under right breast. Wound vac in place. F/C draining to bedside. Safety measures in place.
[2022-09-05 08:47] LABS: Chloride 105 mmol/L (98-107); Potassium 4.2 mmoL/L (3.5-5.1); Sodium 137 mmol/L (136-145)
[2022-09-05 08:48] LABS: Basophils # 0.1 K/mm3 (0-0.2); Basophils % 0.9 % (0.1-2.0); Eosinophils # 0.4 K/mm3 (0.0-0.4); Eosinophils % 3.4 % (0.1-12.0); Lymphocytes # 2.6 K/mm3 (0.7-4.5); Lymphocytes % 23.7 % (10-50); Mean Corpuscular HGB Conc 30.7 g/dL (31.8-35.4); Mean Corpuscular Hemoglobin 29.3 pg (27.0-31.2); Mean Corpuscular Volume 95.5 fl (81-99); Mean Platelet Volume 8.5 fl (7.4-10.4); Monocytes % 9.2 % (1.7-9.3); Neutrophils # 6.7 K/mm3 (1.8-7.8); Neutrophils % 62.7 % (37.0-80.0); Platelet Count 279 K/mm3 (142-424); Red Blood Count 2.51 M/mm3 (4.20-5.40); Red Cell Distribution Width 16.4 % (11.5-17.5); White Blood Count 10.7 K/mm3 (4.8-10.8)
[2022-09-05 08:50] LABS: Anion Gap 6.2 mEq/L (5-15); Blood Urea Nitrogen 30 mg/dl (7-17); Calcium 7.5 mg/dl (8.4-10.2); Carbon Dioxide 30 mmol/L (22.0-30.0); Creatinine Clearance Estimated 52 mL/min (50-200); Estimated Glomerular Filt Rate 39 ml/min (>60); GFR (African American) 47 ML/MIN (>60); Glucose 98 mg/dl (74-100)
[2022-09-05 08:56] LABS: C-Reactive Protein 191.4 mg/L (0-4)
[2022-09-05 09:38] LABS: Procalcitonin 0.356 ng/mL (0.0-2.0)
--- NOTE | 2022-09-05 09:56 | EXP.SURG.PN ---
Subjective Narrative: Patient had apparently has some atrial fibrillation with rapid ventricular response. Now controlled. Clinically has been aspirating. Exam Data for Last 24 hours Vital signs and Labs for Last 24 Hours: Temp Pulse Resp BP Pulse Ox FiO2 99.4 F 105 H 16 95/63 L 98 28 09/05/22 08:00 09/05/22 08:00 09/05/22 04:55 09/05/22 04:55 09/05/22 07:50 09/04/22 20:07 Laboratory Results - last 24 hr 09/05/22 08:13: WBC 10.7, RBC 2.51 L D, Hct 24.0 L, MCV 95.5, MCH 29.3, MCHC 30.7 L, RDW 16.4, Plt Count 279 D, MPV 8.5, Neut % (Auto) 62.7, Lymph % (Auto) 23.7, [place] % (Auto) 9.2, Eos % (Auto) 3.4, Baso % (Auto) 0.9, Neut # (Auto) 6.7, Lymph # (Auto) 2.6, [place] # (Auto) 1.0, Eos # (Auto) 0.4, Baso # (Auto) 0.1 09/05/22 08:13: Sodium 137, Potassium 4.2 D, Chloride 105, Carbon Dioxide 30, Anion Gap 6.2, BUN 30 H D, Creatinine 1.30 H, Estimated Creat Clear 52, Estimated GFR 39 L, Est GFR ( Amer) 47 L, Glucose 98, Calcium 7.5 L, C-Reactive Protein 191.4 H I & O for Last 24 hours: Intake & Output 09/02/22 09/03/22 09/04/22 09/05/22 11:59 11:59 11:59 11:59 Intake Total 1990 1568 / 1568 Output Total 600 / 600 300 / 300 Balance 1391 / 1391 1268 / 1268 Weight 233 lb 7 oz 235 lb 9 oz *Routine Skin Exam Comments: Wound VAC in place. Progress Note: A&P Assessment and plan (1) Laceration of buttock with complication: Status: Acute Assessment and plan: May plan for wound VAC change in the operating room tomorrow to allow for some sedation if necessary and wound washout. (2) Anemia: Status: Acute (3) Atrial fibrillation with RVR: Status: Acute (4) Dementia: Status: Chronic (5) Rheumatoid arthritis: Status: Chronic (6) Hypertension: Status: Chronic (7) Congestive heart failure: Status: Chronic (8) Atrial fibrillation: Status: Chronic
[2022-09-05 10:35] LABS: Hemoglobin 7.3 g/dL (12.2-16.2)
--- NOTE | 2022-09-05 11:29 | PC.NURSE ---
Notified Dr Reyes and Dr Lantigua of pt h/h at 1115. nno
--- NOTE | 2022-09-05 12:24 | EXP.PN ---
Subjective *Date: 09/05/22 *Time: 12:24 Interval history: Date of service September 05, 2022 Nursing staff report that the patient remains afebrile with stable vital signs and improved heart rates. Her oxygen saturations are appropriate on her current oxygen supply 1.5 L via nasal cannula. Surgery continues to follow and plans to return to the OR in the a.m. Exam Data for Last 24 hours Vital signs and Labs for Last 24 Hours: Temp Pulse Resp BP Pulse Ox FiO2 99.2 F 106 H 20 102/63 L 95 28 09/05/22 11:41 09/05/22 10:00 09/05/22 10:00 09/05/22 10:00 09/05/22 10:00 09/04/22 20:07 Laboratory Results - last 24 hr 09/05/22 08:13: WBC 10.7, RBC 2.51 L D, Hgb 7.3 L D, Hct 24.0 L, MCV 95.5, MCH 29.3, MCHC 30.7 L, RDW 16.4, Plt Count 279 D, MPV 8.5, Neut % (Auto) 62.7, Lymph % (Auto) 23.7, [place] % (Auto) 9.2, Eos % (Auto) 3.4, Baso % (Auto) 0.9, Neut # (Auto) 6.7, Lymph # (Auto) 2.6, [place] # (Auto) 1.0, Eos # (Auto) 0.4, Baso # (Auto) 0.1 09/05/22 08:13: Sodium 137, Potassium 4.2 D, Chloride 105, Carbon Dioxide 30, Anion Gap 6.2, BUN 30 H D, Creatinine 1.30 H, Estimated Creat Clear 52, Estimated GFR 39 L, Est GFR ( Amer) 47 L, Glucose 98, Calcium 7.5 L, C-Reactive Protein 191.4 H, Procalcitonin 0.356 I & O for Last 24 hours: Intake & Output 09/02/22 09/03/22 09/04/22 09/05/22 23:59 23:59 23:59 23:59 Intake Total 350 / 350 2045 / 2045 1164 / 1164 Output Total 600 / 600 300 / 300 Balance 350 / 350 1445 / 1445 864 / 864 Weight 103.929 kg 105.885 kg 106.849 kg Constitutional Constitutional: no acute distress and chronically ill appearing *Routine HEENT Exam Head: Present normocephalic Eye: Present EOMI and PERRL ENT: Present mucous membranes moist *Routine Neck Exam Neck: Present supple; Absent lymphadenopathy *Routine Respiratory Exam Respiratory: Present rhonchi, normal respiratory effort and symmetric chest movement *Routine Cardiovascular Exam Cardiovascular: Present RRR *Routine Abdominal Exam Abdominal: Present soft and normoactive bowel sounds; Absent tenderness *Routine Extremities Exam Extremities: Absent cyanosis, clubbing or edema *Routine Skin Exam Skin: Present warm Comments: Wound VAC noted *Routine Neurological Exam Neurological: Present alert and oriented X3 Assessment and Plan *Assessment and plan (1) Laceration of buttock with complication: Status: Acute Category: Medical Code(s): S31.801A - Laceration without foreign body of unspecified buttock, initial encounter (2) Anemia: Status: Acute Category: Medical Code(s): D64.9 - Anemia, unspecified (3) Atrial fibrillation with RVR: Status: Acute Category: Medical Code(s): I48.91 - Unspecified atrial fibrillation (4) Dementia: Status: Chronic Category: Medical Code(s): F03.90 - Unspecified dementia, unspecified severity, without behavioral disturbance, psychotic disturbance, mood disturbance, and anxiety (5) Rheumatoid arthritis: Status: Chronic Category: Medical Code(s): M06.9 - Rheumatoid arthritis, unspecified (6) Hypertension: Status: Chronic Category: Medical Code(s): I10 - Essential (primary) hypertension (7) Congestive heart failure: Status: Chronic Category: Medical Code(s): I50.9 - Heart failure, unspecified Plan 87-year-old female who fell at her nursing facility 2 days ago and sustained laceration. Initially managed with partial closure. Patient previously on hospice. Family decided they wanted more aggressive treatment, return to [facility] today for reevaluation and closure with placement of wound VAC. Surgery consulted, appreciate their assistance. Presented in A. fib with RVR upon arrival to the MedSurg unit. Problems addressed as follows: We have reviewed and discussed her morning labs which include a CBC with an improved white blood cell count 10.7, hemog
--- NOTE | 2022-09-05 13:52 | PC.NURSE ---
pt continually asks for water. educated family and reminded patient that she currently cannot have any liquids because she aspirates all consistency of liquids. pt able to tolerate applesauce with crushed meds without aspiration.
--- NOTE | 2022-09-05 16:04 | PC.NURSE ---
[address] blanco and verified it was ok to transfer pt out of stepdown. ok to transfer at this time, pt to remain on tele.
--- NOTE | 2022-09-05 16:41 | PC.NURSE ---
Patient has had numerous visitors this shift. she appears to know some of their names, but is unable to remember where she is and other aspects of her care. pt has complained of pain once this shift stating that her neck hurt. pt medicated. pt able to rest well, no further complaints of pain at this time. rhonchi audible at bedside. auscultation has rhonchi throughout. bowel sounds are active. pt turned q2. no pitting edema noted in any extremity. pt family informed of the possibility of surgical procedure tomorrow to change out wound vac and wash out wound, no further information available about procedure at this time. nad noted.
--- NOTE | 2022-09-05 17:11 | PC.NURSE ---
pt made npo r/t aspiration risk
--- NOTE | 2022-09-05 17:42 | PC.NURSE ---
pt refused oral care x3 staff member attempts. Shelbie Muñiz
[2022-09-06] VITALS (24 sets, daily range): BP systolic 94–124; BP diastolic 44–75; PULSE 84–105; RESP 16–20; TEMP 36.3–36.9; O2SAT 90–100; BMI 38.1; BMI 38.0
--- NOTE | 2022-09-06 05:08 | PC.NURSE ---
Pt's lungs noted to be more wet at 2305. Also noted more edematous to extremities and face. Brigid SHOE DESIGNER notified. Fluids DC. Lasix 20 mg IV ordered and carried out. Pt NPO at this time due to aspiration precautions. Pt coughs after any po intake. She has c/o Generalized pain and headache this shift. Medicated per sep. Pt given bath by staff. F/C draining to bedside. 400 ml total urine output. Safety measures in place.
[2022-09-06 06:02] LABS: Basophils % 0.3 % (0.1-2.0); Eosinophils # 0.3 K/mm3 (0.0-0.4); Eosinophils % 2.6 % (0.1-12.0); Hemoglobin 7.6 g/dL (12.2-16.2); Lymphocytes % 20.1 % (10-50); Mean Corpuscular HGB Conc 30.6 g/dL (31.8-35.4); Mean Corpuscular Hemoglobin 29.3 pg (27.0-31.2); Mean Corpuscular Volume 95.7 fl (81-99); Mean Platelet Volume 8.5 fl (7.4-10.4); Monocytes # 0.9 K/mm3 (0.1-1.0); Neutrophils # 6.8 K/mm3 (1.8-7.8); Platelet Count 315 K/mm3 (142-424); Red Blood Count 2.61 M/mm3 (4.20-5.40); Red Cell Distribution Width 16.5 % (11.5-17.5)
[2022-09-06 06:12] LABS: Chloride 105 mmol/L (98-107); Potassium 4.1 mmoL/L (3.5-5.1); Sodium 138 mmol/L (136-145)
[2022-09-06 06:15] LABS: Anion Gap 7.1 mEq/L (5-15); Blood Urea Nitrogen 29 mg/dl (7-17); Calcium 7.6 mg/dl (8.4-10.2); Carbon Dioxide 30 mmol/L (22.0-30.0); Creatinine Clearance Estimated 57 mL/min (50-200); Estimated Glomerular Filt Rate 43 ml/min (>60); GFR (African American) 52 ML/MIN (>60); Glucose 103 mg/dl (74-100)
--- NOTE | 2022-09-06 06:19 | P.PN_ITS ---
Subjective Narrative: Patient continues to show signs of aspiration. Hemoglobin 7.6. Exam Data for Last 24 hours Vital signs and Labs for Last 24 Hours: Temp Pulse Resp BP Pulse Ox FiO2 97.7 F 94 H 18 98/56 L 99 1.5 09/06/22 04:00 09/06/22 04:00 09/06/22 04:00 09/06/22 04:00 09/06/22 01:00 09/05/22 19:46 Laboratory Results - last 24 hr 09/05/22 08:13: WBC 10.7, RBC 2.51 L D, Hgb 7.3 L D, Hct 24.0 L, MCV 95.5, MCH 29.3, MCHC 30.7 L, RDW 16.4, Plt Count 279 D, MPV 8.5, Neut % (Auto) 62.7, Lymph % (Auto) 23.7, [place] % (Auto) 9.2, Eos % (Auto) 3.4, Baso % (Auto) 0.9, Neut # (Auto) 6.7, Lymph # (Auto) 2.6, [place] # (Auto) 1.0, Eos # (Auto) 0.4, Baso # (Auto) 0.1 09/05/22 08:13: Sodium 137, Potassium 4.2 D, Chloride 105, Carbon Dioxide 30, Anion Gap 6.2, BUN 30 H D, Creatinine 1.30 H, Estimated Creat Clear 52, Estimated GFR 39 L, Est GFR ( Amer) 47 L, Glucose 98, Calcium 7.5 L, C- Reactive Protein 191.4 H, Procalcitonin 0.356 09/06/22 05:23: WBC 10.0, RBC 2.61 L, Hgb 7.6 L, Hct 25.0 L, MCV 95.7, MCH 29.3, MCHC 30.6 L, RDW 16.5, Plt Count 315, MPV 8.5, Neut % (Auto) 68.0, Lymph % (Auto) 20.1, [place] % (Auto) 9.0, Eos % (Auto) 2.6, Baso % (Auto) 0.3, Neut # (Auto) 6.8, Lymph # (Auto) 2.0, [place] # (Auto) 0.9, Eos # (Auto) 0.3, Baso # (Auto) 0.0 09/06/22 05:23: Sodium 138, Potassium 4.1, Chloride 105, Carbon Dioxide 30, Anion Gap 7.1, BUN 29 H, Creatinine 1.20 H, Estimated Creat Clear 57, Estimated GFR 43 L, Est GFR ( Amer) 52 L, Glucose 103 H, Calcium 7.6 L I & O for Last 24 hours: Intake & Output 09/03/22 09/04/22 09/05/22 09/06/22 11:59 11:59 11:59 11:59 Intake Total 1990 / 1990 1568 / 1568 1413 / 1413 Output Total 600 / 600 300 / 300 825 / 825 Balance 1391 / 1391 1268 / 1268 588 / 588 Weight 233 lb 7 oz 235 lb 9 oz 237 lb 3 oz *Routine Skin Exam Comments: VAC intact Progress Note: A&P Assessment and plan (1) Laceration of buttock with complication: Status: Acute Assessment and plan: Plan for negative pressure wound therapy dressing change today. Tentatively plan this in the operating room for controlled scenario with sedation if needed and washout and optimal lighting for inspection. Overall patient's prognosis is quite poor. (2) Anemia: Status: Acute (3) Atrial fibrillation with RVR: Status: Acute (4) Dementia: Status: Chronic (5) Rheumatoid arthritis: Status: Chronic (6) Hypertension: Status: Chronic (7) Congestive heart failure: Status: Chronic
--- NOTE | 2022-09-06 06:53 | EXP.PN ---
Subjective *Date: 09/06/22 *Time: 06:53 Interval history: Date of service September 06, 2022 Nursing staff report that the patient remains afebrile with ongoing improved heart rates and stable low blood pressures. She is saturating appropriately on supplemental oxygen at 1 to 2 L per nasal cannula. They voiced concerns with swallowing ability and family has requested to minimize suctioning and proceed with p.o. Surgery plans to take back to the OR today for debridement of her wound. Case management is assisting with transition back to her hospice care facility. We have reviewed and discussed her morning labs which identify a white blood cell count of 10, hemoglobin 7.6, hematocrit 25, platelet count 315. Her electrolytes are normal with BUN of 29 and creatinine 1.2. Her glucose is 103. Exam Data for Last 24 hours Vital signs and Labs for Last 24 Hours: Temp Pulse Resp BP Pulse Ox FiO2 97.7 F 94 H 18 98/56 L 99 1.5 09/06/22 04:00 09/06/22 04:00 09/06/22 04:00 09/06/22 04:00 09/06/22 01:00 09/05/22 19:46 Laboratory Results - last 24 hr 09/05/22 08:13: WBC 10.7, RBC 2.51 L D, Hgb 7.3 L D, Hct 24.0 L, MCV 95.5, MCH 29.3, MCHC 30.7 L, RDW 16.4, Plt Count 279 D, MPV 8.5, Neut % (Auto) 62.7, Lymph % (Auto) 23.7, [place] % (Auto) 9.2, Eos % (Auto) 3.4, Baso % (Auto) 0.9, Neut # (Auto) 6.7, Lymph # (Auto) 2.6, [place] # (Auto) 1.0, Eos # (Auto) 0.4, Baso # (Auto) 0.1 09/05/22 08:13: Sodium 137, Potassium 4.2 D, Chloride 105, Carbon Dioxide 30, Anion Gap 6.2, BUN 30 H D, Creatinine 1.30 H, Estimated Creat Clear 52, Estimated GFR 39 L, Est GFR ( Amer) 47 L, Glucose 98, Calcium 7.5 L, C-Reactive Protein 191.4 H, Procalcitonin 0.356 09/06/22 05:23: WBC 10.0, RBC 2.61 L, Hgb 7.6 L, Hct 25.0 L, MCV 95.7, MCH 29.3, MCHC 30.6 L, RDW 16.5, Plt Count 315, MPV 8.5, Neut % (Auto) 68.0, Lymph % (Auto) 20.1, [place] % (Auto) 9.0, Eos % (Auto) 2.6, Baso % (Auto) 0.3, Neut # (Auto) 6.8, Lymph # (Auto) 2.0, [place] # (Auto) 0.9, Eos # (Auto) 0.3, Baso # (Auto) 0.0 09/06/22 05:23: Sodium 138, Potassium 4.1, Chloride 105, Carbon Dioxide 30, Anion Gap 7.1, BUN 29 H, Creatinine 1.20 H, Estimated Creat Clear 57, Estimated GFR 43 L, Est GFR ( Amer) 52 L, Glucose 103 H, Calcium 7.6 L I & O for Last 24 hours: Intake & Output 09/03/22 09/04/22 09/05/22 09/06/22 23:59 23:59 23:59 23:59 Intake Total 350 / 350 2045 / 2045 2277 / 2277 300 / 300 Output Total 600 / 600 725 / 725 400 / 400 Balance 350 / 350 1445 / 1445 1552 / 1552 -100 / -100 Weight 103.929 kg 105.885 kg 106.849 kg 107.586 kg Constitutional Constitutional: no acute distress and chronically ill appearing *Routine HEENT Exam Head: Present normocephalic Eye: Present EOMI and PERRL ENT: Present mucous membranes moist *Routine Neck Exam Neck: Present supple; Absent lymphadenopathy *Routine Respiratory Exam Respiratory: Present rhonchi, normal respiratory effort and symmetric chest movement *Routine Cardiovascular Exam Cardiovascular: Present RRR *Routine Abdominal Exam Abdominal: Present soft and normoactive bowel sounds; Absent tenderness *Routine Extremities Exam Extremities: Absent cyanosis, clubbing or edema *Routine Skin Exam Skin: Present warm Comments: Wound VAC noted *Routine Neurological Exam Neurological: Present alert and moving all extremities Assessment and Plan *Assessment and plan (1) Laceration of buttock with complication: Status: Acute Category: Medical Code(s): S31.801A - Laceration without foreign body of unspecified buttock, initial encounter (2) Anemia: Status: Acute Category: Medical Code(s): D64.9 - Anemia, unspecified (3) Atrial fibrillation with RVR: Status: Acute Category: Medical Code(s): I48.91 - Unspecified atrial fibrillation (4) Dementia: Status: Chronic Category: Medical Code(s): F03.90 - Unspecified dementia, unspecified severity, without behavioral disturbance,
[2022-09-06 08:26] LABS: Coronavirus 19, PCR Not Detected (NotDetected); Influenza A, PCR Not Detected (NotDetected); Influenza B, PCR Not Detected (NotDetected)
--- NOTE | 2022-09-06 09:14 | P.PN_ITS ---
Subjective *Date: 09/06/22 *Time: 09:14 Medical Exam Vital signs and Labs for Last 24 Hours: Vital Signs Temp Pulse Pulse Resp BP Pulse Ox FiO2 09/06/22 08:00 97.8 F 98 H 18 119/72 100 09/06/22 07:40 99 H 100 09/06/22 04:00 97.7 F 94 H 18 98/56 L 09/06/22 04:00 100 H 09/06/22 01:00 86 18 99/63 L 99 09/06/22 00:00 100 H 09/06/22 00:00 98.0 F 09/05/22 20:00 90 09/05/22 19:47 100.1 F H 09/05/22 19:46 1.5 09/05/22 16:00 99.5 F 94 H 20 111/65 100 09/05/22 16:00 96 H 09/05/22 14:00 92 H 20 96/48 L 97 09/05/22 12:00 91 H 09/05/22 11:41 99.2 F 09/05/22 10:00 106 H 20 102/63 L 95 Intake and Output 09/05/22 09/06/22 09/06/22 23:59 07:59 15:59 Intake Total 1113 / 2277 300 / 300 Output Total 425 / 725 400 / 650 250 / 650 Balance 688 / 1552 -100 / -350 -250 / -350 Intake: Intake, Total IV Amount 1113 / 2277 300 / 300 Ringers Solution,Lactated 1,000 863 / 7 300 / 300 ml @ 75 mls/hr IV .[id number] [facility] Rx#:[id number] Vancomycin/Water For Inj (Peg) 250 / 250 1.75 gm In 350 ml @ 175 mls/hr IV ONCE ONE Rx#:[id number] Output: Output, Urine Amount 425 / 725 400 / 650 250 / 650 Other: Number of Unmeasured Voids 0 0 Weight 106.849 kg 107.586 kg Patient Weight 09/06/22 23:59 Weight 107.586 kg Laboratory Results - last 24 hr 09/05/22 08:13: Hgb 7.3 L D 09/05/22 08:13: Procalcitonin 0.356 09/06/22 05:23: WBC 10.0, RBC 2.61 L, Hgb 7.6 L, Hct 25.0 L, MCV 95.7, MCH 29.3, MCHC 30.6 L, RDW 16.5, Plt Count 315, MPV 8.5, Neut % (Auto) 68.0, Lymph % (Auto) 20.1, [place] % (Auto) 9.0, Eos % (Auto) 2.6, Baso % (Auto) 0.3, Neut # (Auto) 6.8, Lymph # (Auto) 2.0, [place] # (Auto) 0.9, Eos # (Auto) 0.3, Baso # (Auto) 0.0 09/06/22 05:23: Sodium 138, Potassium 4.1, Chloride 105, Carbon Dioxide 30, Anion Gap 7.1, BUN 29 H, Creatinine 1.20 H, Estimated Creat Clear 57, Estimated GFR 43 L, Est GFR ( Amer) 52 L, Glucose 103 H, Calcium 7.6 L 09/06/22 08:17: SARS-CoV-2 (PCR) Not detected, Influenza A Untype (PCR) Not detected, Influenza Type B (PCR) Not detected I & O for Labs for Last 24 Hours: Intake & Output 09/03/22 09/04/22 09/05/22 09/06/22 23:59 23:59 23:59 23:59 Intake Total 350 / 350 2045 / 2045 2277 / 2277 300 / 300 Output Total 600 / 600 725 / 725 650 / 650 Balance 350 / 350 1445 / 1445 1552 / 1552 -350 / -350 Weight 103.929 kg 105.885 kg 106.849 kg 107.586 kg The patient's infection will respond to the chosen ABx?: Yes (NO CULTURES, TREATING LACERATION, ASPIRATION PRECAUTIONS) Is the patient receiving the right drug, dose, and route?: Yes Could a more targeted ABx be ordered?: No
--- NOTE | 2022-09-06 09:18 | PC.NURSE ---
Pt has wound vac to left gluteal cheek that was applied in the OR on 09/03/22. outer most layer of packing sponge is sanon, wond vac is currently set to 120 mmhg. wound vac dressing to be changed this am in OR by Dr Lantigua.
--- NOTE | 2022-09-06 09:22 | PC.NURSE ---
pt nt suctioned by RT at approx 0815. several attempts were made to orally suction pt, but unable to retrieve/reach phlegm.
--- NOTE | 2022-09-06 10:43 | DIET.NUTRFU ---
was previously under hospice care, fell at [place] and got a laceration to L buttock that required sx with wound vac and today completing a washout. Has been having issues since admit with aspiration, requiring suction which family is refusing. PRODUCE INSPECTOR suasnna ordered. Bowel sounds noted on 09/05-no BM. Edema noted to face with lasix given. Would benefit from prostat AWC when order diet decided. provider is also addressing POC with family, to continue hospice care or more aggressive care
--- NOTE | 2022-09-06 11:20 | PC.NURSE ---
pt off unit with pre op staff at this time [id number]
--- NOTE | 2022-09-06 11:59 | EXP.ANES.CKL ---
[facility] Disclaimer: The information contained in this section may have been updated after the patient was seen, as this information can be updated by other users. Medical History Atrial fibrillation Congestive heart failure Deep vein thrombosis (DVT) Hypertension Rheumatoid arthritis Family History Other No significant family history Social History Smoking Status: Never smoker alcohol intake: never substance use type: denies use current occupational status: unemployed Travel in the last 8 weeks: None [facility] Anesthesia Checklist Patient Identification Patient Identification: Arm Band Structural Data Admitted From: Inpatient Planned Operative Procedure/s: Wound vac Consent for Planned Operative Procedure(s) Verified: Yes NPO Status Verified Time NPO: 00:00 Airway Assessment C-Spine Mobility Assessed: Yes TMJ Mobility Assessed: Yes Dentition: Poor Dentition Neurological Assessment Level of Consciousness: Disoriented and Restless Hx Seizures: No Numbness or tingling in extremities: No Anesthesia Plan Anesthesia Risk discussed: Yes Anesthesia Plan: Patient unable to respond/answer ASA Class: III Anesthesia Type: MAC
--- NOTE | 2022-09-06 13:40 | P.OP_ITS ---
Date of procedure: 09/06/22 Pre-op Diagnosis:: Complex large left gluteal and pelvic wound Post-op Diagnosis:: Same Procedure performed:: Wound washout and placement of negative pressure wound therapy dressing Surgeon:: Oliverio Lantigua MD CITIZENSHIP INSTRUCTOR:: Tano Brooke Anesthesia: MAC Estimated blood loss (mL): 10 Operative findings:: Wound dimensions essentially unchanged from previous. Only minimal superficial tissue necrosis. Significant ecchymoses particularly in the pelvic/perineal area. Wound traverses into the deep pelvic soft tissues. Operative note:: Patient was taken to the operating room. She was positioned in right lateral position. Wound VAC was removed. The area was prepped and draped in the standard surgical fashion. Wound was inspected. There was some superficial tissue necrosis which did not appear to require surgical debridement but would likely be amenable to dressing change. Wound dimensions essentially unchanged. The wound did traverse a very deep into the pelvic soft tissues. Wound was irrigated with approximately 3 L of pulsatile irrigation using the Interpulse device. Local anesthetic was infiltrated prior to irrigating the wound. Wound VAC was reapplied which required some complex shaping of the foam in the lower aspect of the wound to place the foam into the deep pelvic soft tissues. Condition: stable Disposition: PACU Complications:: None immediately apparent
--- NOTE | 2022-09-06 13:47 | EXP.ANES.I ---
[facility] Anesthesia Record Part I Anesthesia Record I Intake, IV Amount: 300 Estimated blood loss (mL): 20 Urine output (mL): 0 Blood Pressure: 100/44 SaO2: 93 Pulse Rate: 84 Respiratory Rate: 16 Temperature: 97.6 F Patient is:: Drowsy and Oral/Nasal airway Stable to PACU at:: 13:45
--- NOTE | 2022-09-06 16:04 | PC.NURSE ---
1348-upon arrival to pacu, pt placed on simple mask at 12L, oral airway in place, audible rhonchi/crackles noted-pt oral suctioned per Pedro,VERNON and thick, brown tinged secretions noted to suction, will continue to monitor
--- NOTE | 2022-09-06 16:09 | PC.NURSE ---
1404-pt coughing on demand at this time, lung sounds improving some, no further need to oral suctions, sats stable on 3l/nc, pt reports, i am freezing -josefa paws remains in place and additional warm blankets applied to pt, will continue to monitor 1421-detailed report called to ALFONZO Navarro 1424-pt transported to 2nd floor room 216 via hospital bed w/alpesh rails up and left in care of ALFONZO Navarro with bed locked in lowest position, vss, pt stable, family at bedside
--- NOTE | 2022-09-06 16:49 | HMH.SLDYSPHA ---
Speech & Language Evaluation Speech/Language Dysphagia Evaluation Start: 09/06/22 10:45 Freq: ONCE Status: Active Protocol: Document 09/06/22 16:34 KELVIN (Rec: 09/06/22 16:49 [email or web address] [id number]) Dysphagia Assess/Goals/Plan Assessment Date of Evaluation: 09/06/22 Evaluation Type Initial Certification Assessment/Problems Aspiration per MD order. Does Patient Qualify for Service Yes Qualify/Failure Comment Based on the results of the clinical swallow evaluation, pt would benefit from futher assessment via MBSS to determine LRD. Recommendations PHYSICIAN CERTIFICATION: The specified therapy services are required, authorized, and reviewed every 30 days. Comment Pt to remain NPO until MBSS can be completed tomorrow. Plan Pt/Guardian verbally ack understanding Yes of dx/prognosis/goals Pt/Guardian verbally ack understanding Yes of/consent to tx prog G -code Required No Education Instructions provided CSE results and recommendations discussed with pt, family, care management, and nursing, who expressed understanding. Pt/Caregiver able to recall information Able to recall/restate Reinforcement needed No Speech & Language HPI History Present Illness Description of Patient Problem Ms. Guy is an 87 y.o. female presenting to [facility] for a laceration as the result of a fall. PMH is significant for DVT, CHF, HTN, rheumatoid arthritis, dementia, Afib. She came from [facility] where she was previously on thin liquids. She was in hospice care there but D/Wilbur from hospice to have laceration addressed. Nursing reports she has been coughing with liquids up to pudding thick. Rehab Services Assessed Speech therapy Is this evaluation r/t stroke? No General Information General Current Food Consistancy NPO Dentition Poor Dentition Oxygen Status Nasal Cannula Patient Orientation Person Ability to Follow Directions Poor Communication Ability Severe Impairment Dysphagia:Food Presentation Evaluation Food Type Pureed,Liquid Normal/Thin Liquid
[2022-09-07] VITALS (9 sets, daily range): BP systolic 124–151; BP diastolic 68–84; PULSE 80–110; RESP 18–22; TEMP 36.5–36.7; O2SAT 96–100; BMI 38.3
--- NOTE | 2022-09-07 00:01 | FL_ITS ---
FINAL REPORT CLINICAL HISTORY: . fluoro time 3:31 FINDINGS: MODIFIED BARIUM SWALLOW History: Dysphagia FINDINGS: Fluoroscopy was provided for the speech pathologist to evaluate the swallowing mechanism. The patient was given several different consistencies of barium while the swallow was visualized fluoroscopically. The report of the speech pathologist should be consulted prior to making dietary decisions. FLUOROSCOPY TIME: 3.3 minutes IMPRESSION: Modified barium swallow under fluoroscopic guidance. Please see the report of the speech pathologist for Dietary recommendations. Films reviewed , interpreted and dictated by Dr. Blake. Transcribed by Umer Lara PA-C. Reviewed, Interpreted and Dictated by Armando Blake MD Transcribed by MIKEY Cortes Authenticated and [facility]
[2022-09-07 06:49] LABS: Basophils % 0.3 % (0.1-2.0); Eosinophils # 0.1 K/mm3 (0.0-0.4); Eosinophils % 0.8 % (0.1-12.0); Hematocrit 24.7 % (37.0-47.0); Hemoglobin 7.7 g/dL (12.2-16.2); Lymphocytes # 1.7 K/mm3 (0.7-4.5); Lymphocytes % 15.8 % (10-50); Mean Corpuscular Hemoglobin 29.6 pg (27.0-31.2); Mean Corpuscular Volume 95.5 fl (81-99); Mean Platelet Volume 8.5 fl (7.4-10.4); Monocytes # 1.2 K/mm3 (0.1-1.0); Monocytes % 11.4 % (1.7-9.3); Neutrophils # 7.8 K/mm3 (1.8-7.8); Neutrophils % 71.7 % (37.0-80.0); Platelet Count 321 K/mm3 (142-424); Red Blood Count 2.59 M/mm3 (4.20-5.40); Red Cell Distribution Width 16.7 % (11.5-17.5); White Blood Count 10.9 K/mm3 (4.8-10.8)
[2022-09-07 06:58] LABS: Chloride 106 mmol/L (98-107); Sodium 140 mmol/L (136-145)
[2022-09-07 06:59] LABS: Potassium 3.8 mmoL/L (3.5-5.1)
[2022-09-07 07:01] LABS: Blood Urea Nitrogen 22 mg/dl (7-17); Creatinine Clearance Estimated 69 mL/min (50-200); Estimated Glomerular Filt Rate 53 ml/min (>60); GFR (African American) 64 ML/MIN (>60)
[2022-09-07 07:02] LABS: Anion Gap 10.8 mEq/L (5-15); Calcium 7.4 mg/dl (8.4-10.2); Carbon Dioxide 27 mmol/L (22.0-30.0); Glucose 103 mg/dl (74-100)
--- NOTE | 2022-09-07 07:51 | EXP.SURG.PN ---
Subjective Narrative: No new issues overnight per nursing. Exam Data for Last 24 hours Vital signs and Labs for Last 24 Hours: Temp Pulse Resp BP Pulse Ox FiO2 98.1 F 99 H 18 131/68 100 1.5 09/07/22 04:00 09/07/22 05:30 09/07/22 04:00 09/07/22 04:00 09/07/22 04:00 09/05/22 19:46 Laboratory Results - last 24 hr 09/03/22 18:18: Antibody Identification See Comments 09/06/22 08:17: SARS-CoV-2 (PCR) Not detected, Influenza A Untype (PCR) Not detected, Influenza Type B (PCR) Not detected 09/07/22 06:40: WBC 10.9 H, RBC 2.59 L, Hgb 7.7 L, Hct 24.7 L, MCV 95.5, MCH 29.6, MCHC 31.0 L, RDW 16.7, Plt Count 321, MPV 8.5, Neut % (Auto) 71.7, Lymph % (Auto) 15.8, Osborne % (Auto) 11.4 H, Eos % (Auto) 0.8, Baso % (Auto) 0.3, Neut # (Auto) 7.8, Lymph # (Auto) 1.7, Osborne # (Auto) 1.2 H, Eos # (Auto) 0.1, Baso # (Auto) 0.0 09/07/22 06:40: Sodium 140, Potassium 3.8, Chloride 106, Carbon Dioxide 27, Anion Gap 10.8, BUN 22 H, Creatinine 1.00, Estimated Creat Clear 69, Estimated GFR 53 L, Est GFR ( Amer) 64 D, Glucose 103 H, Calcium 7.4 L I & O for Last 24 hours: Intake & Output 09/04/22 09/05/22 09/06/22 09/07/22 11:59 11:59 11:59 11:59 Intake Total 1990 1568 / 1568 1413 / 1413 300 / 300 Output Total 600 / 600 300 / 300 1075 / 1075 700 / 700 Balance 1391 / 1391 1268 / 1268 338 / 338 -400 / -400 Weight 233 lb 7 oz 235 lb 9 oz 236 lb 15.951 oz 238 lb 9 oz Progress Note: A&P Assessment and plan (1) Laceration of buttock with complication: Status: Acute Assessment and plan: Wound VAC changed yesterday in the operating room. Next wound VAC change may take place in 48 hours. Recommend wound VAC change every 72 hours. (2) Anemia: Status: Acute (3) Atrial fibrillation with RVR: Status: Acute (4) Dementia: Status: Chronic (5) Rheumatoid arthritis: Status: Chronic (6) Hypertension: Status: Chronic (7) Congestive heart failure: Status: Chronic
--- NOTE | 2022-09-07 08:38 | DIET.NUTRFU ---
Patient continues NPO status, plans to complete MBSS today to determine safe diet. If unable to complete MBSS may need to review POC, was under hospice prior to admit
--- NOTE | 2022-09-07 09:13 | SW/DCPLANNER ---
Addendum entered by Pamela Tadeo RN 09/07/22 15:38: Patient accepted at [facility] and they will take her today. Addendum entered by Pamela Tadeo RN 09/07/22 13:26: Patient failed modified barium swallow. Family has decided against feeding tube and would like patient to go to [facility] inpatient care in [place]. Information sent to them. ALFONZO Bucio Addendum entered by Kalee Gibbons 09/07/22 11:15: [facility] has denied this patient. I will follow up with patient/family and MD. Original Note: This patient is currently [facility] level of care at [facility] w/ [facility]. Family has revoked Hospice services at this time. Family has also expressed an interest in discharging to [facility] in [facility] at time of discharge. Patient information has been faxed to [facility] at this time. Discharge date is unknown at this time. I will continue to follow up with [facility] and [facility].
--- NOTE | 2022-09-07 14:03 | HMH.SLMBS2 ---
Speech & Language Evaluation Speech/Language Mod Barium Swallow Start: 09/06/22 15:52 Freq: ONCE Status: Complete Protocol: Document 09/07/22 13:13 KELVIN (Rec: 09/07/22 14:03 KELVIN [id number]) General Information General Current Food Consistency NPO Dentition Poor Dentition Oxygen Status Nasal Cannula Patient Orientation Person Ability to Follow Directions Fair Communication Ability Moderate Impairment MBS Recommendations Diet Dietary Recommendations NPO Mod Barium Swallow Impressions Summary and Impressions Oral Phase Impression Mild Impairment Oral Phase Summary Mild oral dysphagia, however, limited assessment given no solid trials given on the study. No solids were trialed 2' to the severity of dysphagia and concern for airway compromise, so mastication was u/a to be assessed. Premature spillage to the pyriform sinuses was noted 2' decreased back of tongue control. No significant oral residue present on the study. Pharyngeal Phase Impression Severe Impairment Pharyngeal Phase Summary Severe pharyngeal dysphagia. Aspiration of all consistencies during or after the swallow. Minimal hyolaryngeal elevation and excursion, resulting in decreased epiglottic inversion and decreased airway protection. Aspiration present during the swallow with thin liquids, and continued aspiration of all consistencies after the swallow 2' severe pharyngeal residue that continuously fell into the airway over the course of the entire study. Residue is primarily present in the valleculae, which was unable to be cleared. Pt could not complete a volitional swallow or attempt a chin tuck to try and reduce residue. With residue unable to be
--- NOTE | 2022-09-07 14:19 | DIET.NUTRFU ---
Patient failed MBSS today, [employer] was unable to trail different consistencies due to level of dysphasia she had premature spillage, lack of tongue control and oral residue present during study. [employer] recommended to continue NPO status, this was explained to family and they would like to pursue alternate means on nutrition. Dr. De Leon was going to review POC with family. She was under hospice care prior to this admit. She came to hospital for laceration tx. Based on her overall health, tubefeeding may not be beneficial in providing quality of care. RD will continue to follow POC
--- NOTE | 2022-09-07 15:36 | EXP.DC.SUM ---
General Admission date:: 09/03/22 Discharge date: 09/07/22 HPI HPI HPI: Mrs. Guy is an 87-year-old female with history of rheumatoid arthritis, bilateral foot deformities, class II obesity, and dementia who presented from [facility] due to laceration.? She was previously a hospice patient but discharged earlier today at the family's request so she could come to the hospital to have large left gluteal laceration addressed.? She originally presented to the ER 2 days ago on 09/01/2022 after she had sustained a very large complex laceration to the left buttock with laceration measuring 20 cm in length.? Wound sustained when she fell against her potty chair.? The area was partially closed by Dr. Castillo in the emergency department at that time leaving several areas open for packing for dressing changes due to the high likelihood of potential infection.? Due to the complexity of the wound and difficulty with wound care and a significant mount of drainage along with concern for infection, family requested patient be sent back to the hospital for further management and surgical intervention.? On arrival to the ER, surgery consulted, plan to take patient to the OR to surgically close wound and place wound VAC.? Medicine consulted for admission.? Patient evaluated after arriving to the floor post surgery.? Family in the room with her includes a son, daughter, [id number], grandson.? They provided history of patient.? It appears she has been on hospice for several years due to her rheumatoid arthritis, progressive debility, and dementia.? No formal diagnosis of dementia previously however she does not take care of her ADLs daily, has declined over the past year, does not recall if she is spoken to people hours later. Hospital Course Hospital Course Hospital Course: 87-year-old female who fell at her nursing facility a few days ago and sustained laceration.? Initially managed with partial closure.? Patient previously on hospice.? Family decided they wanted more aggressive treatment, returned to [facility] for reevaluate patient, and closure with placement of wound VAC. Surgery assisted with care. Patient noted to have issues swallowing, eval showed aspiration. Goals of care discussion with family, prefer to proceed with comfort measures and not be aggressive about G-tube placement. Hospice consulted. Patient admitted to inpatient hospice for further management. Problems addressed as follows:? Left gluteal laceration (Complex 28 cm x 8 cm x 2 cm) Left flank subcutaneous hematoma Chronic anemia -Surgery consulted on admission. Taken for repair with placement of wound VAC. Initiated on empiric antibiotics with Levaquin daily. At this time, patient's nutrition, lack of being able to swallow, and goals of care to proceed with comfort measures led to transitioning wound care management. We will discontinue wound VAC. Continue with packing wound. Recommend finishing 7 days total of empiric antibiotic therapy, today is day 5 of 7. Continuing to require significant IV pain meds. Recommend continuing concentrated morphine solution 5 to 10 mg as needed every 2 hours. Wound having serosanguineous drainage at this time. De-escalate care in accordance with family's comfort care wishes. Of note, Eliquis was discontinued on admission. Has been receiving iron and vitamin C replacement along with PPI therapy. Okay to discontinue these therapies. Chronic atrial fibrillation A. fib with RVR resolved Chronic anticoagulation -Initiated on IV diltiazem because of A-fib with RVR on admission. Has done well transitioning to oral therapy. Continue oral metoprolol and diltiazem. Holding anticoagulation given diagnosis above. Recommend p.o. meds as tolerated in accordance with comfort feeds and goals of care with family. Dementia -Previously undiagnosed however apparent on exam. Recommend continued interaction with family. Complicates all as
--- NOTE | 2022-09-07 15:49 | P.EN_ITS ---
Advance care planning note: Active diagnosis: Dementia, rheumatoid arthritis, dysphagia, blood loss anemia, gluteal laceration and fall, progressive debility (bedbound). PPS level 10 to 2 0% The patient's active diagnoses are of sufficient risk that focused discussion on advanced care planning is indicated in order to allow the patient to thoughtfully consider personal goals of care; and, if situations arise that prevent the ability to personally give input, to ensure appropriate representation of their personal desires through documentation or informed surrogate decision makers. Discussion: Persons present and participating in discussion: Son and [id number] Discussion: Discussed patient's progressive decline over the past several years including bedbound status and nonambulatory status while at halfway for over 2 years. Her continued recertification with hospice for her progressive conditions as stated above and active diagnosis. Discussed her worsening decl ine over the past week but in particular over the past several months with her difficulty swallowing and coughing while eating, weakness leading to her fall and laceration, and her progressive dementia over the past several months to year. Discussed goals of care including life prolonging measures versus aggressive comfort measures. After much discussion, family had a discussion amongst themselves and called patient's daughter. Family members agreed that patient would want to focus on comfort and quality of her life prolonging measures and aggressive procedures such as placing G-tube. Discussed how placement of G-tube would not prevent her risk of aspiration. Family elected to proceed with hospice and comfort measures. Time spent: Total time spent [id number] in education and discussion directly related to advance care planninminutes Cesar Hein MD 09/07/2022 Multiple discussions held through the afternoon for total time as stated above between the hours of 12:00 and 2:30.
== END 2022-09-07 17:13 | disposition hospice, inpatient (51) | DRG 605 ==
LOC: ER 13:14 → SDC 14:14 → 2ND 15:45
PROVIDERS: Family Medicine; Surgery; Admitting Provider Internal Medicine Adolescent Medicine; Emergency Provider Student in an Organized Health Care Education/Training Program; PCP Family Medicine; Visit Provider Internal Medicine Adolescent Medicine
PROC: 0HD8XZZ Extraction of Buttock Skin, External Approach (ICD-10-PCS; principal; 2022-09-03 13:30)
DX: S31.821A Laceration without foreign body of left buttock, initial encounter; I48.20 Chronic atrial fibrillation, unspecified; I96 Gangrene, not elsewhere classified; W18.11XA Fall from or off toilet without subsequent striking against object, initial encounter; Y92.121 Bathroom in nursing home as the place of occurrence of the external cause; Z66 Do not resuscitate; Z51.5 Encounter for palliative care; M06.9 Rheumatoid arthritis, unspecified; E66.9 Obesity, unspecified; Z68.38 Body mass index [BMI] 38.0-38.9, adult; Z86.718 Personal history of other venous thrombosis and embolism; F03.90 Unspecified dementia, unspecified severity, without behavioral disturbance, psychotic disturbance, mood disturbance, and anxiety; D50.0 Iron deficiency anemia secondary to blood loss (chronic); I11.0 Hypertensive heart disease with heart failure; I50.9 Heart failure, unspecified; S30.1XXA Contusion of abdominal wall, initial encounter; W06.XXXA Fall from bed, initial encounter
CPT/HCPCS: 12035; 97597 ×2; 97598 ×2; 36415; 70371; 71045; 74176; 80048; 80053; 83735; 84145; 85007; 85025; 86140; 86850; 86870; 90471; 90715; 92610; 92611; 93005; 99285; C9803; J1956; J2405; U0003; U0005